=== PATIENT | female | born 1990 | race Caucasian/White ===

== ENCOUNTER 2020-11-01 10:10 | Outpatient (REF) | payer OTHER, SELFPAY | END 2020-11-01 10:11 | disposition home or self-care (01) | LOC: HO.LAB 10:10 | PROVIDERS: Visit Provider Obstetrics & Gynecology | DX: B97.7 Papillomavirus as the cause of diseases classified elsewhere (principal) | CPT/HCPCS: 57456; 81025; 88305 ==

== ENCOUNTER 2021-06-12 08:39 | Outpatient (REF) | payer OTHER, SELFPAY ==
[2021-06-13 10:18] LABS: BV Int Neg Control Negative (Negative); BV Int Pos Control Positive (Positive)
[2021-06-13 11:46] LABS: CT PCR NOT DETECTED (Not Detect.); NG PCR NOT DETECTED (Not Detect.)
== END 2021-06-12 08:40 | disposition home or self-care (01) ==
LOC: HO.LAB 08:39
PROVIDERS: Visit Provider Advanced Practice Midwife
DX: Z11.3 Encounter for screening for infections with a predominantly sexual mode of transmission (principal); R10.9 Unspecified abdominal pain; N89.8 Other specified noninflammatory disorders of vagina; N94.6 Dysmenorrhea, unspecified; Z20.2 Contact with and (suspected) exposure to infections with a predominantly sexual mode of transmission
CPT/HCPCS: 87086; 87480; 87491; 87510; 87591; 87660; 99212

== ENCOUNTER 2021-07-08 13:10 | Outpatient (REF) | payer OTHER, SELFPAY ==
[2021-07-09 09:09] LABS: CT PCR NOT DETECTED (Not Detect.); NG PCR NOT DETECTED (Not Detect.)
[2021-07-09 09:44] LABS: BV Int Neg Control Negative (Negative); BV Int Pos Control Positive (Positive)
== END 2021-07-08 13:11 | disposition home or self-care (01) ==
LOC: HO.LAB 13:10
PROVIDERS: Visit Provider Advanced Practice Midwife
DX: Z11.3 Encounter for screening for infections with a predominantly sexual mode of transmission (principal); A59.9 Trichomoniasis, unspecified; B96.89 Other specified bacterial agents as the cause of diseases classified elsewhere; N76.0 Acute vaginitis; Z20.2 Contact with and (suspected) exposure to infections with a predominantly sexual mode of transmission; N94.6 Dysmenorrhea, unspecified; N92.0 Excessive and frequent menstruation with regular cycle; Z87.42 Personal history of other diseases of the female genital tract
CPT/HCPCS: 87480; 87491; 87510; 87591; 87660; 99212

== ENCOUNTER 2021-11-10 08:42 | Outpatient (REF) | payer OTHER, SELFPAY ==
[2021-11-10 14:05] LABS: CT PCR NOT DETECTED (Not Detect.); NG PCR NOT DETECTED (Not Detect.)
[2021-11-11 09:31] LABS: BV Int Neg Control Negative (Negative); BV Int Pos Control Positive (Positive)
[2021-11-14 02:22] LABS: HPV mRNA E6/E7 rflx Not Detected (Not Detected)
== END 2021-11-10 08:43 | disposition home or self-care (01) ==
LOC: HO.LAB 08:42
PROVIDERS: Visit Provider Advanced Practice Midwife
DX: Z01.419 Encounter for gynecological examination (general) (routine) without abnormal findings (principal); N94.6 Dysmenorrhea, unspecified; Z11.3 Encounter for screening for infections with a predominantly sexual mode of transmission; Z11.8 Encounter for screening for other infectious and parasitic diseases; Z11.51 Encounter for screening for human papillomavirus (HPV); F41.8 Other specified anxiety disorders; Z87.42 Personal history of other diseases of the female genital tract; Z98.51 Tubal ligation status; Z88.1 Allergy status to other antibiotic agents; Z88.0 Allergy status to penicillin
CPT/HCPCS: 87480; 87491; 87510; 87591; 87624; 87660; 88142

== ENCOUNTER 2022-06-09 09:32 | Outpatient (REF) | payer OTHER, SELFPAY ==
[2022-06-09 13:47] LABS: CT PCR NOT DETECTED (Not Detect.); NG PCR NOT DETECTED (Not Detect.)
[2022-06-10 09:28] LABS: BV Int Neg Control Negative (Negative); BV Int Pos Control Positive (Positive)
== END 2022-06-09 09:33 | disposition home or self-care (01) ==
LOC: HO.LAB 09:32
PROVIDERS: Visit Provider Advanced Practice Midwife
DX: N94.6 Dysmenorrhea, unspecified (principal); R10.2 Pelvic and perineal pain; Z20.2 Contact with and (suspected) exposure to infections with a predominantly sexual mode of transmission; Z11.3 Encounter for screening for infections with a predominantly sexual mode of transmission
CPT/HCPCS: 87480; 87491; 87510; 87591; 87660; 99212

== ENCOUNTER 2022-07-23 11:51 | Outpatient (REF) | payer OTHER, SELFPAY ==
[2022-07-24 14:29] LABS: BV Int Neg Control Negative (Negative); BV Int Pos Control Positive (Positive)
== END 2022-07-23 11:52 | disposition home or self-care (01) ==
LOC: HO.LAB 11:51
PROVIDERS: Visit Provider Advanced Practice Midwife
DX: A59.9 Trichomoniasis, unspecified (principal)
CPT/HCPCS: 87480; 87510; 87660; 99212

== ENCOUNTER 2022-07-28 13:34 | Outpatient (REF) | payer OTHER, SELFPAY ==
--- NOTE | ~2022-07-28 | US_ITS ---
EXAMINATION: US PELVIS CLINICAL INFORMATION: Pain COMPARISON: Previous ultrasound October 2017 TECHNIQUE: Ultrasound of the pelvis is performed using both transabdominal and transvaginal transducers along with Doppler. Transvaginal imaging is performed due to inadequate visualization transabdominally. FINDINGS: The uterus is anteverted and measures 8 x 3.5 x 4.4 cm in dimension. No focal uterine lesion is seen. Endometrial thickness is normal measuring 0.5 cm. The ovaries are normal. The right ovary measures 2.7 x 1.7 x 2.1 cm. The left ovary measures 2.4 x 1.6 x 2.2 cm. There is no fluid in the pelvis. US/US pelvic and transvaginal IMPRESSION: Normal pelvic ultrasound.
== END 2022-07-28 13:35 | disposition home or self-care (01) ==
LOC: HO.US 13:34
PROVIDERS: Visit Provider Advanced Practice Midwife
DX: R10.2 Pelvic and perineal pain (principal)
CPT/HCPCS: 76830; 76856

== ENCOUNTER → 2022-08-03 10:02 | Outpatient (BNVA) | payer OTHER, SELFPAY | PROVIDERS: PCP Physician Assistant Medical; Visit Provider Advanced Practice Midwife | DX: N92.0 Excessive and frequent menstruation with regular cycle (principal); N94.6 Dysmenorrhea, unspecified; Z20.2 Contact with and (suspected) exposure to infections with a predominantly sexual mode of transmission; Z87.42 Personal history of other diseases of the female genital tract | CPT/HCPCS: 99212 ==

== ENCOUNTER → 2022-08-25 11:30 | Outpatient (BNVA) | payer OTHER, SELFPAY | PROVIDERS: PCP Physician Assistant Medical; Visit Provider Obstetrics & Gynecology | DX: N93.9 Abnormal uterine and vaginal bleeding, unspecified (principal) | CPT/HCPCS: 99212 ==

== ENCOUNTER 2022-11-11 12:56 | Outpatient (REF) | payer OTHER, SELFPAY ==
[2022-11-12 11:25] LABS: CT PCR NOT DETECTED (Not Detect.); NG PCR NOT DETECTED (Not Detect.)
[2022-11-12 12:18] LABS: BV Int Neg Control Negative (Negative); BV Int Pos Control Positive (Positive)
[2022-11-13 05:48] LABS: HPV mRNA E6/E7 rflx Not Detected (Not Detected)
== END 2022-11-11 12:57 | disposition home or self-care (01) ==
LOC: HO.LNP 12:56
PROVIDERS: Visit Provider Advanced Practice Midwife
DX: Z01.411 Encounter for gynecological examination (general) (routine) with abnormal findings (principal); Z11.51 Encounter for screening for human papillomavirus (HPV); N92.0 Excessive and frequent menstruation with regular cycle; Z20.2 Contact with and (suspected) exposure to infections with a predominantly sexual mode of transmission; Z87.42 Personal history of other diseases of the female genital tract
CPT/HCPCS: 87480; 87491; 87510; 87591; 87624; 87660; 88142

== ENCOUNTER 2022-11-11 14:16 | Outpatient (REF) | payer OTHER, SELFPAY ==
[2022-11-11 14:45] LABS: Hematocrit 37.6 % (37.0-47.0); Hemoglobin 12.8 g/dl (12.0-16.0); Mean Corpuscular Hemoglobin 31.1 pg (27.0-33.0); Mean Corpuscular Volume 91.3 fL (80.0-98.0); Platelet Count 269 X10*3/uL (160-400); Red Blood Count 4.12 X10*6/uL (4.20-5.50); Red Cell Distribution Width 12.1 % (11.0-16.0); White Blood Count 7.4 X10*3/uL (4.8-10.8)
[2022-11-11 15:38] LABS: Syphilis Screen Nonreactive (Nonreactive); TSH reflex Free T4 0.86 uIU/mL (0.32-4.0)
[2022-11-13 09:29] LABS: HBsAGNum1 0.32 S/CO (0.00-0.99); HIV AB/AG Nonreactive (Nonreactive); HIV Num 1 0.08 S/CO (0.00-0.99); Hepatitis B Surface Antigen Negative (Negative); ~HepC Num1 0.11 S/CO (0.00-0.79); ~Hepatitis C Antibody Nonreactive (Nonreactive)
== END 2022-11-11 14:17 | disposition home or self-care (01) ==
LOC: HO.LAB 14:16
PROVIDERS: Obstetrics & Gynecology; Visit Provider Advanced Practice Midwife
DX: Z11.4 Encounter for screening for human immunodeficiency virus [HIV] (principal); N94.6 Dysmenorrhea, unspecified; N93.9 Abnormal uterine and vaginal bleeding, unspecified; Z20.2 Contact with and (suspected) exposure to infections with a predominantly sexual mode of transmission
CPT/HCPCS: 36415; 84443; 85027; 86780; 86803; 87340; 87389

== ENCOUNTER → 2022-12-14 14:56 | Outpatient (BNVA) | payer OTHER, SELFPAY | PROVIDERS: Visit Provider Advanced Practice Midwife | DX: Z30.42 Encounter for surveillance of injectable contraceptive (principal) | CPT/HCPCS: 96372; 99211 ==

== ENCOUNTER 2022-12-22 12:44 | Outpatient (REF) | payer OTHER, SELFPAY | END 2022-12-22 12:45 | disposition home or self-care (01) | LOC: HO.LNP 12:44 | PROVIDERS: Visit Provider Obstetrics & Gynecology | DX: R87.610 Atypical squamous cells of undetermined significance on cytologic smear of cervix (ASC-US) (principal) | CPT/HCPCS: 57454; 88305; 88342; 88360 ==

== ENCOUNTER → 2023-01-05 10:53 | Outpatient (BNVA) | payer OTHER, SELFPAY | PROVIDERS: Visit Provider Obstetrics & Gynecology | DX: N87.0 Mild cervical dysplasia (principal); Z98.890 Other specified postprocedural states | CPT/HCPCS: 99212 ==

== ENCOUNTER 2023-01-15 10:34 | Day surgery (SDC) | payer OTHER, SELFPAY ==
[2023-01-15] VITALS (9 sets, daily range): BP systolic 104–120; BP diastolic 49–66; PULSE 60–76; RESP 16–19; TEMP 36.1–36.6; O2SAT 98–100; BMI 25.4
--- NOTE | 2023-01-15 10:53 | MHC.SHP ---
Pre-Procedural Eval Section A Date of Service: 01/15/23 Section B Chief Complaint: Mild cervical dysplasia Allergies: Allergies Allergy/AdvReac Type Severity Reaction Status Date / Time amoxicillin Allergy Severe hives Verified 01/13/23 13:38 gabapentin Allergy Severe Hives Verified 01/15/23 10:47 vancomycin Allergy Severe hives Verified 01/13/23 13:38 penicillin V Allergy Unknown hives Verified 01/13/23 13:38 Penicillins Allergy Unknown HIVES Verified 01/13/23 13:38 Plan I have reviewed the history and physical and performed a pertinent physical examination on my patient. No changes have occurred unless specified. Time Spent With Patient Time: Total time managing care of this patient today ____ minutes.
--- NOTE | 2023-01-15 10:59 | HO.ANESPROP2 ---
HPI - Anesthesia Eval Consult details Narrative: 32 yo female patient for LEEP PMFSH Active Problems Active Problems: All Active Problems (Updated 01/05/23 @ 11:25 by Evangelist Leone MD) Dysplasia of cervix, low grade (ALEX 1) (Acute) ASCUS of cervix with negative high risk HPV (Acute) Encounter for management and injection of depo-Provera (Acute) Abnormal uterine bleeding (Acute) Trichomonas contact, treated (Acute) Pelvic pain (Acute) Well woman exam with routine gynecological exam (Acute) Menorrhagia (Acute) Potential exposure to STD (Acute) Bacterial vaginosis (Acute) Trichomoniasis (Acute) Severe dysmenorrhea (Acute) Vaginal irritation (Acute) Hx of abnormal cervical Pap smear (Acute) Past Medical History Medical History Depression with anxiety Family History Family History Mother Diabetes Paternal Grandmother Alzheimer's dementia Family history of problems with anesthesia: No Surgical History Surgical History History of loop electrical excision procedure (LEEP) History of tubal ligation History of Problems with Anesthesia: No Social History Social History Household Members: Children Housing: Apartment Alcohol intake: current Alcohol intake frequency: holidays/special occasions only Patient Tobacco Use Status: Former Tobacco user Cigarettes Per Day: 3 Years Smoked: 10 Use of substances other than those prescribed or required for medical reasons: Yes Are you DNR?: No Advance Directives: No Advance Directives Information Provided: Yes Recently lost weight without trying: No Nutrition Risks: No Nutritional Risk Current occupational status: unemployed Sexual orientation: Straight/Heterosexual Gender identity: Female Meds Allergies Allergy/AdvReac Type Severity Reaction Status Date / Time amoxicillin Allergy Severe hives Verified 01/13/23 13:38 gabapentin Allergy Severe Hives Verified 01/15/23 10:47 vancomycin Allergy Severe hives Verified 01/13/23 13:38 penicillin V Allergy Unknown hives Verified 01/13/23 13:38 Penicillins Allergy Unknown HIVES Verified 01/13/23 13:38 Exam Exam Date and Time: January 15, 2023 1059 Height,Weight and Vital Signs: Height 5 ft 9 in Weight 78.018 kg Last Vital Signs Resp 16 01/15/23 10:53 O2 Del Method 01/15/23 10:53 Vital Signs Temp Pulse Resp BP Pulse Ox O2 Del Method 01/15/23 10:53 97.4 F 60 16 109/66 99 Room Air Pertinent Lab Results Pertinent Lab Results: Lab Results 01/15/23 Range/Units 10:42 Urine Test NEGATIVE (NEGATIVE) Airway Mallampati Class: II TM Dist: >3cm Neck ROM: Full Loose/Missing/Broken Teeth: Yes (Missing some teeth. Denies broken or loose teeth) Heart: RRR Lungs: CTAB Assessment and Plan Assessment Anesthesia Assessment: Anesthesia Plan Discussed and Chart Reviewed Final Anesthetic Review Family History of Problems with Anesthesia: No History of Problems with Anesthesia: No NPO: Yes ASA Class: II Final Preanesthetic Review: No Changes in Pt Med Stat, Meds/Allgs Chart Reviewed, Consent Obtained/Reviewed and Anes Risks/Benef Reviewed Patient Risk: Low Procedure Risk: Low Assessment/Block/Sedation in SS: Assess/Block/Sedation-SS Anesthetic Plan Anesthetic Plan: GA Disposition: Standard PACU
[2023-01-15 11:00] LABS: UPreg QC Valid YES; Urine Pregnancy NEGATIVE (NEGATIVE)
--- NOTE | 2023-01-15 13:06 | P.BOP_ITS ---
Brief Operative Note Date of Service: 01/15/23 Pre-op diagnosis: Persistent ALEX 1 with positive ECC Post-op diagnosis: same Procedure: LEEP CONE with post CONE ECC Surgeon: Evangelist Leone MD Anesthesia: GLMA and other (Paracervical block) Was an Environmental Communications Specialist used for this Procedure?: No Estimated blood loss (mL): 0 Pathology: other (Cervical cone, endocervical, Post cone ECC) Condition: stable Disposition: other (Home)
--- NOTE | 2023-01-15 13:07 | P.OP_ITS ---
Operative Note Operative Note Date of Service: 01/15/23 Narrative: Pre op diagnosis: Persistent ALEX 1 with positive ECC Operation: Colposcopy, Loop electrical excision procedure cone, top hat endocervical excision, post cone ECC Postop diagnosis: the same Quantitative blood loss: Minimal Surgeon: Evangelist Leone MD, FACOG Wireless Team Member: None Pathology: Cervical cone, top-hat endo cervical excision, endo cervical curettage Complications: none Anesthesia: GLMA and Para cervical block Procedure: The patient was put in a dorsal lithotomy position, scrubbed and draped in the usual sterile fashion. A speculum was inserted inside the patient's vagina. The cervix is assessed using the colposcope with acetic acid , the lesions were seen, and at least 1 cm of the squamocolumnar junction was observed. 20 x 5 mm size loop was selected based upon the diameter of the lesion. Lugol solution was used to outline the lesions and area of the transformation zone order to be removed 10 cc of xylocaine with epinephrine were injected submucosally into the surface of the cervix (ectocervix) at the 3, 6, 9, and 12 o'clock positions. The electrosurgical generator is set at 40 dorantes on blend 1. The loop is carefully passed simultaneously around and under the transformation zone, in order to ensure excising it making sure the lesion is at least 5 mm far from the specimen margins . The loop was allowed to glide through the cervix from one side to the other, allowing the cutting current to divide the tissue. Since ECC was positive additional tissue was excised from this area with a smaller-diameter loop , endo cervical cone a excision was performed An endo cervical curettage is performed following completion of excision, and hemostasis is obtained with a Ball electrode or regular tip cautery. At the end, Monsel's solution was applied to the cone bed. The patient tolerated the procedure well and, all instruments were taken out of the patient vaginal cavity, and the patient was transferred to the PACU in stable condition.
== END 2023-01-15 14:47 | disposition home or self-care (01) ==
PROVIDERS: Visit Provider Obstetrics & Gynecology
PROC: 0UBC7ZZ Excision of Cervix, Via Natural or Artificial Opening (ICD-10-PCS; CPT 57522; principal; 2023-01-15 12:30)
DX: N87.0 Mild cervical dysplasia (principal); F41.8 Other specified anxiety disorders; Z98.51 Tubal ligation status; Z88.0 Allergy status to penicillin; Z88.1 Allergy status to other antibiotic agents; Z88.8 Allergy status to other drugs, medicaments and biological substances; Z87.891 Personal history of nicotine dependence
CPT/HCPCS: 57461; 81025; 88305; 88307; J1100; J1885; J2250; J2405; J3010

== ENCOUNTER 2023-01-30 15:08 | Emergency (ER) | payer MEDICAID, SELFPAY ==
--- NOTE | ~2023-01-30 | XR_ITS ---
EXAMINATION: XR ANKLE, LEFT CLINICAL INFORMATION: Pain status post injury COMPARISON: None TECHNIQUE: AP, lateral, and mortise views of the left ankle. FINDINGS: The bones and soft tissues are normal. No fracture. Alignment is anatomic. Joint spaces are maintained. No joint effusion. XR/XR ankle LT min 3V IMPRESSION: Normal left ankle. If a soft tissue injury suspected consider MRI.
--- NOTE | 2023-01-30 15:32 | ED.GENADULT ---
HPI - General Adult General Chief complaint: Extremity Injury, Lower Stated complaint: L foot inj Time Seen by Provider: 01/30/23 17:56 Source: patient Mode of arrival: ambulatory Limitations: no limitations History of Present Illness HPI narrative: Patient is a 32 year old assigned female at with no reported medical history presenting to the emergency department today with left ankle pain. Patient states that last night she was playing with her daughter when her left ankle twisted and she felt a loud crack. Patient denies hitting her head with the incident. Patient denies any loss of consciousness from the incident. Patient denies any dizziness, lightheadedness, abdominal pain, nausea, vomiting, fever, chills, blurry vision, double vision, loss of vision, chest pain, difficulty breathing, shortness of breath, back pain, night sweats, pain with urination, increased urinary frequency, increased urinary urgency, blood in her urine or stool, syncope or a near syncopal episode, bowel incontinence, bladder incontinence, bowel retention, bladder retention, or any other complaints at this time. Onset (ago): day(s) (1) Location: left and lower extremity Radiation: non-radiation Severity: mild Severity scale (1-10): 3 Quality: aching and dull Pain Consistency: constant Relieving factors: none Exacerbating factors: none Associated symptoms: denies other symptoms Treatments prior to arrival: none Related Data Previous Rx's Medication Instructions Recorded medroxyprogesterone 150 mg/mL 150 mg IM Q12W #1 mL 11/11/22 intramuscular suspension (Depo-Provera) Allergies Allergy/AdvReac Type Severity Reaction Status Date / Time amoxicillin Allergy Severe hives Verified 01/30/23 15:33 gabapentin Allergy Severe Hives Verified 01/30/23 15:33 vancomycin Allergy Severe hives Verified 01/30/23 15:33 penicillin V Allergy Unknown hives Verified 01/30/23 15:33 Penicillins Allergy Unknown HIVES Verified 01/30/23 15:33 Review of Systems Constitutional: Constitutional: Reports no additional constitutional complaints, Denies chills, Denies fever(s) and Denies night sweats Eyes: Eyes: Reports no additional eye complaints, Denies blurry vision, Denies change in vision, Denies diplopia, Denies eye discharge, Denies loss of vision and Denies eye pain ENT: Denies dizziness Cardiovascular: Cardiovascular: Reports no additional cardiovascular complaints, Denies chest pain, Denies lightheadedness, Denies Loss of Consciousness and Denies dyspnea Respiratory: Respiratory: Reports no additional respiratory complaints and Denies dyspnea Gastrointestinal: Gastrointestinal: Reports no additional gastrointestinal complaints, Denies abdominal pain, Denies melena, Denies hematochezia, Denies change in bowel habits and Denies change in stool character Genitourinary: Genitourinary: Denies hematuria, Denies urinary frequency, Denies dysuria, Denies urinary incontinence, Denies urinary hesitancy and Denies urinary urgency Musculoskeletal: Musculoskeletal: Reports no additional musculoskeletal complaints, Denies numbness and Denies tingling Comments: left ankle pain Neurologic: Denies dizziness, Denies loss of vision, Denies numbness and Denies tingling Psychiatric: Psychiatric: Reports no additional psychiatric complaints Endocrine: Endocrine: Reports no additional endocrine complaints Hematologic/Lymphatic: Hematologic/Lymphatic: Reports no additional hematologic/lymphatic complaints Allergic/Immunologic: Allergic/Immunologic: Reports no additional allergic/immunologic complaints [facility] Past Medical History Attestation statement: The following information was validated with the patient. Source: old records reviewed and nursing notes reviewed Medical History Depression with anxiety Surgical History History of loop electrical excision procedure (LEEP) History of tubal ligation Family History Family History Mother Diabetes Paternal Grandmother Alzheimer's dementia Social History Social History Household Members: Children Housing: Apartment Alcohol intake: current Alcohol intake frequency: holidays/special occasions only Patient Tobacco Use Status: Former Tobacco user Cigarettes Per Day: 3 Years Smoked: 10 Advance Directives: No Advance Directives Information Provided: No Current occupational status: unemployed Sexual orientation: Straight/Heterosexual Gender identity: Female Physical Exam ED Vital Signs: Vital Signs - 24 hr 01/30/23 15:33 01/30/23 17:57 Temperature 97.5 F 98.8 F Pulse Rate 72 80 Respiratory Rate 18 16 Blood Pressure 116/69 127/62 Pulse Oximetry 100 99 Oxygen Delivery Method Room Air Room Air BMI result Body Mass Index 25.5 Const General: cooperative, no acute distress, alert and awake Nutritional Appearance: well nourished Orientation/consciousness: patient oriented x3 Limitations: no limitations HENMT Head: Yes normal to inspection and Yes atraumatic Ears: hearing grossly normal bilaterally and external ears normal General nose exam: Normal external nose present, no nasal discharge noted and no epistaxis Face and sinus: Yes normal facial exam, No abrasion and No laceration Mouth: Normal oral and palatal mucosa present, no drooling and no muffled voice Eyes General: appearance normal, both eyes and all related structures Periorbital: periorbital findings normal Eyelids: Yes eyelids normal Conjunctivae: conjunctivae normal Pupils: Equal, round and reactive pupils present EOM: EOMs intact bilaterally Neck Neck: Yes normal visual inspection, Yes full ROM and Yes no lymphadenopathy Chest Chest palpation & inspection: normal inspection of the chest Resp Effort & Inspection: normal respiratory effort and able to speak in complete sentences Auscultation: clear to auscultation bilaterally Cardio Rate: regular rate Rhythm: regular rhythm GI Inspection: Yes normal to inspection Neuro General: patient oriented x3 and moves all extremities Cranial nerves: Yes Equal, round and reactive pupils present Cognition (Neuro): normal cognition Motor exam (neuro): 5/5 motor strength present throughout Sensory Exam: Normal double simultaneous stimulation for sensation Coordination: czvqvq-[id number]-lvic test normal Extrem Other: minimal swelling to the left ankle General: Yes full ROM and Yes capillary refill normal Psych Appearance: grossly normal Mental Status: mental status grossly normal Affect: normal affect Attitude: cooperative Thought process: Normal thought process present Thought content: Normal thought content present Insight: Good insight present (Psych) Course Course Course Narrative: RME performed by Esther Ardon PA-C. Patient is a 32 year old female presenting to the emergency department with left ankle pain. Patient states that she was playing with her daughter when she twisted her left ankle and heard a loud pop. XR ordered. Patient placed back in the waiting room pending imaging and room availability. Procedures Orthopedic Splinting/Casting Injury #1: Side: left Lower Extremity Injury Location: ankle Lower Extremity Immobilizer: boot orthosis Other Orthopedic Equipment: crutches Medical Decision Making Medical Decision Making MDM Narrative: Patient is a 32 year old assigned female at with no reported medical history presenting to the emergency department today with left ankle pain. Patient's physical exam showed minimal swelling to the left ankle but was otherwise unremarkable. Patient's left ankle x-ray showed no acute process. I explained my physical exam findings as well as all test results to the patient. I answered all questions asked by the patient. Patient's left ankle was placed in a walking boot and the patient was given crutches with crutch instructions. Patient's PMS was intact prior to and after boot placement. I stressed the importance of the patient taking her medication as prescribed. I stressed the importance of the patient following up with her primary care provider and an orthopedic provider. I stressed the importance of the patient returning to the emergency department immediately if her symptoms were to worsen or if she were to develop any dizziness, shortness of breath, difficulty breathing, chest pain, blurry vision, loss of vision, nausea, vomiting, abdominal pain, fever, chills, back pain, or any other complaints. Patient verbalized agreement and understanding with this treatment plan and discharge. Differential Diagnosis Differential Diagnoses: The differential diagnosis associated with the presentation includes left ankle injury, left ankle sprain, left ankle strain, left ankle fracture Independent Interpretation I performed an independent interpretation of an: Plain X-Ray Interpretation: My interpretation is in agreement with the radiologist's impression of this imaging study. EXAMINATION: XR ANKLE, LEFT CLINICAL INFORMATION: Pain status post injury? COMPARISON: None? TECHNIQUE: AP, lateral, and mortise views of the left ankle. FINDINGS: The bones and soft tissues are normal. No fracture. Alignment is anatomic. Joint spaces are maintained. No joint effusion.? XR/XR ankle LT min 3V IMPRESSION: Normal left ankle. If a soft tissue injury suspected consider MRI. Dictated By: Darrin Pope MD Signed By: Electronically signed by Darrin Pope MD 01/30/23 2499 Discharge Plan Discharge Clinical Impression: Ankle injury Patient Disposition: Home, Self-Care Instructions: Crutch Instructions (ED) Additional Instructions: Follow up with your primary care provider and an orthopedic provider. Return to the emergency department immediately if your symptoms worsen or if you develop any dizziness, shortness of breath, difficulty breathing, chest pain, blurry vision, loss of vision, nausea, vomiting, abdominal pain, fever, chills, back pain, or any other complaints. Prescriptions: No Action medroxyprogesterone [Depo-Provera] 150 mg/mL suspension 150 mg IM Q12W Qty: 1 5RF Referrals: [facility] [place] Family Medicine [Provider Group] (Call to establish and follow up with a primary care provider. If you already have a primary care provider, please follow up with them.) [facility] [place] Primary Care, [facility] [Provider Group] (Call to establish and follow up with a primary care provider. If you already have a primary care provider, please follow up with them.) [facility] [place] [facility] [Provider Group] (Call to establish and follow up with a primary care provider. If you already have a primary care provider, please follow up with them.) [facility] [place] [facility] [Provider Group] (Call to establish and follow up with an orthopedic provider. ) Interventions: ED Discharge Assessment Last Done: 01/30/23 18:21 Discharge Date/Time: 01/30/23 18:22 Print Language: Lao
[2023-01-30 15:33] VITALS: BP 116/69; PULSE 72; RESP 18; TEMP 36.4; O2SAT 100; BMI 25.5
[2023-01-30 17:57] VITALS: BP 127/62; PULSE 80; RESP 16; TEMP 37.1; O2SAT 99
== END 2023-01-30 18:22 | disposition home or self-care (01) ==
PROVIDERS: Emergency Provider Student in an Organized Health Care Education/Training Program
DX: S99.912A Unspecified injury of left ankle, initial encounter (principal); X50.1XXA Overexertion from prolonged static or awkward postures, initial encounter; Y93.89 Activity, other specified; Y92.019 Unspecified place in single-family (private) house as the place of occurrence of the external cause; Y99.9 Unspecified external cause status
CPT/HCPCS: 73610; 99283

== ENCOUNTER → 2023-02-04 14:00 | Outpatient (BNVA) | payer MEDICAID, SELFPAY | PROVIDERS: Visit Provider Obstetrics & Gynecology | DX: N87.0 Mild cervical dysplasia (principal); Z98.890 Other specified postprocedural states | CPT/HCPCS: 99212 ==

== ENCOUNTER → 2023-02-12 14:30 | Outpatient (BNVA) | payer MEDICAID, SELFPAY | PROVIDERS: Visit Provider Physician Assistant | DX: S93.402A Sprain of unspecified ligament of left ankle, initial encounter (principal) | CPT/HCPCS: 99202 ==

== ENCOUNTER → 2023-03-01 14:42 | Outpatient (BNVA) | payer MEDICAID, SELFPAY | PROVIDERS: Visit Provider Advanced Practice Midwife | DX: Z30.42 Encounter for surveillance of injectable contraceptive (principal) | CPT/HCPCS: 96372; 99211 ==

== ENCOUNTER 2023-05-03 12:03 | Outpatient (REF) | payer MEDICAID, SELFPAY ==
[2023-05-04 11:20] LABS: CT PCR NOT DETECTED (Not Detect.); NG PCR NOT DETECTED (Not Detect.)
== END 2023-05-03 12:04 | disposition home or self-care (01) ==
LOC: HO.LNP 12:03
PROVIDERS: Visit Provider Obstetrics & Gynecology
DX: N93.9 Abnormal uterine and vaginal bleeding, unspecified (principal); Z20.2 Contact with and (suspected) exposure to infections with a predominantly sexual mode of transmission
CPT/HCPCS: 0353U; 99212

== ENCOUNTER → 2023-05-24 14:54 | Outpatient (BNVA) | payer MEDICAID, SELFPAY | PROVIDERS: Visit Provider Advanced Practice Midwife | DX: Z30.42 Encounter for surveillance of injectable contraceptive (principal); N93.9 Abnormal uterine and vaginal bleeding, unspecified | CPT/HCPCS: 96372; 99211 ==

== ENCOUNTER 2023-08-23 10:06 | Outpatient (AMB) | payer MEDICAID, SELFPAY ==
[2023-08-23 10:24] VITALS: BMI 30.9
--- NOTE | 2023-08-23 10:24 | AM.OFFVISNUR ---
Intake Vital Signs 08/23/23 10:24 Height 5 ft 9 in Weight 94.914 kg BMI 30.9 Intake Visit Reasons: Depo Allergies amoxicillin Allergy (Severe, Verified 05/03/23 12:30) hives gabapentin Allergy (Severe, Verified 05/03/23 12:30) Hives vancomycin Allergy (Severe, Verified 05/03/23 12:30) hives penicillin V Allergy (Unknown, Verified 05/03/23 12:30) hives Penicillins Allergy (Unknown, Verified 05/03/23 12:30) HIVES Office Procedures Depo Questionnaire If YES to any of the following questions, please consult a provider. Date of last injection: 05/24/23 Date of last menstrual period: 08/09/23 Date of last gynecology exam: 11/11/22 Menstrual pattern since last injection has been: Light Irregular bleeding?: No Breast lumps or other breast changes?: No Changes in weight or appetite?: Yes (gain) Depression or changes in mood?: No Abnormal hair growth or loss?: No Skin problems (rash, acne, discoloration)?: No Pain at the injection site?: No Headaches?: No Nervousness?: No Abdominal pain or cramping?: No Dizziness or nausea?: No Fatigue or weakness?: No Decrease in sexual drive?: No Chest pain or shortness of breath?: No Swelling in arms or legs?: No Form completed by?: Basil Dawn LPN Office Meds Depo-Provera 150 mg/mL intramuscular syringe Performing Provider: Tati Jeff CNM Performing Location: [facility] [place] [facility] Administered by: Diamante Dawn LPN on 08/23/23 10:24 Dose Route Admin Location Dispensed Lot Number Expiration Date [facility] [employer] 150 mg IM rt. gluteus 1 mL [id number] 09/21/25 19299-731-77 [facility] Coding Level of Care Code Established Pt Est Pt Level 1 (72269) Patient Type Established History Problem Focused Exam Problem Focused Medical Decision Making Straight Forward Time Spent (min) 15 Assessment & Plan Assessment & Plan Orders: Orders AMB Medroxyprogesterone Injection Patient Supplied Today N93.9 - Abnormal uterine and vaginal bleeding, unspecified, Z30.42 - Encounter for surveillance of injectable contraceptive
== END 2023-08-23 10:20 | disposition home or self-care (01) ==
PROVIDERS: Visit Provider Advanced Practice Midwife
DX: Z30.42 Encounter for surveillance of injectable contraceptive (principal); N93.9 Abnormal uterine and vaginal bleeding, unspecified

== ENCOUNTER → 2023-08-23 10:06 | Outpatient (BNVA) | payer MEDICAID, SELFPAY | PROVIDERS: Visit Provider Advanced Practice Midwife | DX: Z30.42 Encounter for surveillance of injectable contraceptive (principal); N93.9 Abnormal uterine and vaginal bleeding, unspecified | CPT/HCPCS: 96372; 99211; J1050 ==

== ENCOUNTER 2023-10-06 15:31 | Outpatient (REF) | payer MEDICAID, SELFPAY ==
[2023-10-07 14:10] LABS: CT PCR NOT DETECTED (Not Detect.); NG PCR NOT DETECTED (Not Detect.)
[2023-10-12 06:29] LABS: HPV mRNA E6/E7 rflx Not Detected (Not Detected)
== END 2023-10-06 15:32 | disposition home or self-care (01) ==
LOC: HO.LNP 15:31
PROVIDERS: Visit Provider Obstetrics & Gynecology
DX: N93.9 Abnormal uterine and vaginal bleeding, unspecified (principal); N87.0 Mild cervical dysplasia; Z32.02 Encounter for pregnancy test, result negative; Z79.899 Other long term (current) drug therapy
CPT/HCPCS: 0353U; 81025; 84443; 84702; 85027; 87624; 88142; 99212

== ENCOUNTER 2023-10-06 15:31 | Outpatient (AMB) | payer MEDICAID, SELFPAY ==
--- NOTE | 2023-10-06 15:35 | MHC.OFFVIS ---
Intake Vital Signs 10/06/23 15:40 Height 5 ft 9 in Weight 209 lb BMI 30.9 BP 92/68 Intake Visit Reasons: vaginal bleeding Tool Setter Required: No Information Interpreted: non-clinical & clinical Enrollment Management Vice President: Enrollment Management Vice President Present (Alba) Allergies amoxicillin Allergy (Severe, Verified 10/06/23 15:42) hives gabapentin Allergy (Severe, Verified 10/06/23 15:42) Hives vancomycin Allergy (Severe, Verified 10/06/23 15:42) hives penicillin V Allergy (Unknown, Verified 10/06/23 15:42) hives Penicillins Allergy (Unknown, Verified 10/06/23 15:42) HIVES Is last menstrual period known: Yes Last menstrual period: 09/23/23 Post menopausal: No HPI HPI Comments History of Present Illness Details Presenting complaining of continuous vaginal bleeding since she was started on Depo-Provera, patient recently took her 4 th shot. Last co testing was in 2021 which showed ASCUS/HPV negative, colpo/biopsy showed ALEX 1 PFSH Medical History Depression with anxiety Surgical History History of loop electrical excision procedure (LEEP) History of tubal ligation Family History Mother Diabetes Paternal Grandmother Alzheimer's dementia Social History Household Members: Children Housing: Apartment Alcohol intake: current Alcohol intake frequency: holidays/special occasions only Patient Tobacco Use Status: Former Tobacco user Cigarettes Per Day: 3 Years Smoked: 10 Current occupational status: unemployed Sexual orientation: Straight/Heterosexual Gender identity: Female Female Reproductive History Menstrual Age of Menarche: 8 Duration of menses: 3-5 days Date of last menstrual period: 09/23/23 control method: progesterone injection Date of last pap smear: 11/11/22 (ASCUS) History of abnormal pap smear: Yes Review of Systems Const All systems reviewed & are unremarkable except as noted in HPI and below Physical Exam Vital Signs: Last Vital Signs BP 92/68 10/06/23 15:40 BMI result Body Mass Index 30.9 General: Yes no CVA tenderness External Female Exam: normal external appearance and normal appearance of the urethra Speculum Exam - Vagina: normal appearance of the vagina, normal palpation, no lesions and no masses Speculum Exam - Cervix: normal appearance of the cervix, normal palpation, no lesions, no masses and nontender Bimanual exam- vagina & uterus: normal bimanual exam, normal palpation, uterine size normal, normal palpation, uterine shape normal, No Cervical tenderness present and non-tender Bimanual Exam- Adnexa, other: normal adnexae Back/Spine/Pelvis Back: no CVA tenderness Results AMB Test Urine AMB Test Urine Negative Last Edit by Alba Corbett CMA on 10/06/23 15:42 AMB Test Urine AMB Test Urine Negative Last Edit by HEATHER Davis on 10/06/23 15:45 Results Reviewed Results Reviewed: Laboratory Last Values Tst Clinic Negative 10/06/23 15:41 Assessment & Plan Assessment & Plan (1) Abnormal uterine bleeding: Comment: On Depo-Provera Code(s): N93.9 - Abnormal uterine and vaginal bleeding, unspecified Plan: Urine test done in the office was negative. Co testing done, GC and chlamydia taken, CBC, TSH, HCG, and pelvic ultrasound ordered. Discussed with the patient the different causes of abnormal bleeding including thyroid disorders, uterine and ovarian pathology, endometrial hyperplasia, carcinoma and other potential causes. Discussed with the patient the work up including CBC (to r/o anemia), TSH, pelvic Ultrasound, endometrial biopsy to r/o endometrial pathology. All questions answered and the patient verbalized understanding. Instructed the patient to schedule an appointment for an endometrial biopsy in 2 weeks. Orders: Orders US pelvic and transvaginal Today N93.9 - Abnormal uterine and vaginal bleeding, unspecified AMB HCG Urine Test Today Z32.02 - Encounter for test, result negative AMB HCG Urine Test Today Z32.02 - Encounter for test, result negative Pap Smear Today N87.0 - Mild cervical dysplasia, N93.9 - Abnormal uterine and vaginal bleeding, unspecified, R87.610 - Atypical squamous cells of undetermined significance on cytologic smear of cervix (ASC-US) CT NG by PCR Today N87.0 - Mild cervical dysplasia, N93.9 - Abnormal uterine and vaginal bleeding, unspecified, R87.610 - Atypical squamous cells of undetermined significance on cytologic smear of cervix (ASC-US) Complete Blood Count no Diff Today N93.9 - Abnormal uterine and vaginal bleeding, unspecified TSH reflex Free T4 Today N93.9 - Abnormal uterine and vaginal bleeding, unspecified HCG Quantitative Today N93.9 - Abnormal uterine and vaginal bleeding, unspecified Coding Level of Care Code Est Pt Level 3 (49073) Diagnoses Abnormal uterine bleeding N93.9
[2023-10-06 15:40] VITALS: BP 92/68; BMI 30.9
== END 2023-10-06 15:56 | disposition home or self-care (01) ==
LOC: HO.HWS 15:31
PROVIDERS: Visit Provider Obstetrics & Gynecology
DX: N93.9 Abnormal uterine and vaginal bleeding, unspecified (principal); Z32.02 Encounter for pregnancy test, result negative
CPT/HCPCS: 99213

== ENCOUNTER 2023-10-06 15:58 | Outpatient (REF) | payer MEDICAID, SELFPAY ==
[2023-10-06 16:45] LABS: Hematocrit 37.3 % (37.0-47.0); Mean Corpuscular HGB Conc 32.2 g/dl (31.0-35.0); Mean Corpuscular Hemoglobin 29.6 pg (27.0-33.0); Mean Corpuscular Volume 92.1 fL (80.0-98.0); Mean Platelet Volume 10.3 fL (9.4-12.3); Platelet Count 292 X10*3/uL (160-400); Red Blood Count 4.05 X10*6/uL (4.20-5.50); Red Cell Distribution Width 12.3 % (11.0-16.0)
[2023-10-06 17:34] LABS: HCG Quantitative < 2 mIU/mL; TSH reflex Free T4 1.91 uIU/mL (0.32-4.0)
== END 2023-10-06 15:59 | disposition home or self-care (01) ==
LOC: HO.LAB 15:58
PROVIDERS: Visit Provider Obstetrics & Gynecology
DX: N93.9 Abnormal uterine and vaginal bleeding, unspecified (principal)
CPT/HCPCS: 84443; 84702; 85027

== ENCOUNTER 2023-11-03 15:43 | Outpatient (REF) | payer MEDICAID, SELFPAY ==
--- NOTE | ~2023-11-03 | US_ITS ---
EXAMINATION: US PELVIS COMPLETE CLINICAL INFORMATION: Abnormal uterine bleeding COMPARISON: Pelvic ultrasound 05/11/2022 TECHNIQUE: Transabdominal and transvaginal imaging was performed. FINDINGS: The uterus is of normal size and echogenicity measuring 8.7 x 3.7 x 4.5 cm. A regular homogeneous endometrium is identified measuring 0.6 cm. Both ovaries are of normal size and echogenicity. The right measures 3.6 x 1.8 x 2.7 cm for a volume of 9.2 mL. The left measures 2.4 x 1.1 x 2.3 cm for a volume of 4.0 mL. There is no pelvic free fluid. US/US pelvic and transvaginal IMPRESSION: Unremarkable pelvic ultrasound.
== END 2023-11-03 15:44 | disposition home or self-care (01) ==
LOC: HO.US 15:43
PROVIDERS: Visit Provider Obstetrics & Gynecology
DX: N93.9 Abnormal uterine and vaginal bleeding, unspecified (principal)
CPT/HCPCS: 76830; 76856

== ENCOUNTER 2024-07-13 12:02 | Emergency (ER) | payer MEDICAID, SELFPAY ==
[2024-07-13 12:16] VITALS: BP 130/84; PULSE 55; RESP 16; TEMP 36.2; O2SAT 100; BMI 36.4
--- NOTE | 2024-07-13 12:22 | ED.GENADULT ---
HPI - General Adult General Chief complaint: General Medical Stated complaint: back pain-swollen feet Time Seen by Provider: 07/13/24 14:59 History of Present Illness ED Provider: Dr. Denise HPI narrative: 34 y/o F patient; PMH unremarkable; presents from home reporting bilateral lower extremity swelling for the past several months. She also reports bilateral flank pain, LLQ abdominal pain, and a generalized non-focal headache. She notes increased frequency in urination. The patient states in the last year she has gained approx 60 - 80. She states her usual weight is 140 - 180lb and currently is 240lb. She attributes the weight gain to life stressors. She denies: fever or chills, SOB, cough/congestion, chest pain, nausea/vomiting, diarrhea. She denies: vaginal discharge or increased odor. Related Data Previous Rx's ?Medication ?Instructions ?Recorded medroxyprogesterone 150 mg/mL 150 mg IM Q12W #1 mL 11/16/23 intramuscular suspension (Depo-Provera) metronidazole 500 mg tablet 500 mg PO BID 7 days #14 tabs 07/05/24 Allergies Allergy/AdvReac Type Severity Reaction Status Date / Time amoxicillin Allergy Severe hives Verified 07/13/24 12:18 gabapentin Allergy Severe Hives Verified 07/13/24 12:18 vancomycin Allergy Severe hives Verified 07/13/24 12:18 penicillin V Allergy Unknown hives Verified 07/13/24 12:18 Penicillins Allergy Unknown HIVES Verified 07/13/24 12:18 Review of Systems Review of Systems: Yes all other systems are reviewed and are negative Neurologic: Denies Abnormal speech present and Denies Sensory deficit (Neuro) [facility] Past Medical History Attestation statement: The following information was validated with the patient. Source: old records reviewed Medical History Depression with anxiety Surgical History History of loop electrical excision procedure (LEEP) History of tubal ligation Family History Family History Mother Diabetes Paternal Grandmother Alzheimer's dementia Social History Social History Household Members: Children Housing: Apartment Alcohol intake: current Alcohol intake frequency: holidays/special occasions only Patient Tobacco Use Status: Former Tobacco user Cigarettes Per Day: 3 Years Smoked: 10 Current occupational status: unemployed Sexual orientation: Straight/Heterosexual Gender identity: Female Physical Exam ED Vital Signs: Vital Signs - 24 hr 07/13/24 12:16 07/13/24 15:16 Temperature 97.2 F 98.7 F Pulse Rate 55 55 Respiratory Rate 16 16 Blood Pressure 130/84 126/68 Pulse Oximetry 100 100 Oxygen Delivery Method Room Air Room Air BMI result Body Mass Index 36.4 Patient is afebrile and hemodynamically stable Const General: cooperative and no acute distress Orientation/consciousness: patient oriented x3 HENMT Head: Yes normal to inspection and Yes atraumatic Eyes General: appearance normal, both eyes and all related structures Pupils: Equal, round and reactive pupils present EOM: EOMs intact bilaterally Neck Neck: Yes normal visual inspection, Yes full ROM, Yes supple and No tender Chest Chest palpation & inspection: normal inspection of the chest and normal palpation of entire chest wall Resp Effort & Inspection: normal respiratory effort, able to speak in complete sentences, no audible wheezes, no cough and no respiratory distress Auscultation: clear to auscultation bilaterally Cardio Rate: regular rate Rhythm: regular rhythm Peripheral pulses: Peripheral pulses 2+ throughout GI Inspection: Yes normal to inspection, No Abdominal wall edema and No distended Palpation (GI): Soft to palpation, not firm, nontender, no guarding and not rigid Auscultation: normal bowel sounds Back/Spine/Pelvis Back: No back tenderness Neuro General: patient oriented x3 and gait normal Cranial nerves: Yes CN's II-XII intact bilaterally and Yes Equal, round and reactive pupils present Cognition (Neuro): normal cognition Speech: No Abnormal speech present Motor exam (neuro): 5/5 motor strength present throughout Sensory Exam: No Sensory deficit (Neuro) Extrem Other: 2+ bilateral lower extremity mildly pitting edema Course Course Course Narrative: This is a Rapid Medical Examination (RME) performed by Bessy Dickerson PA-C in triage. Full HPI, ROS, assessment and treatment plan per primary provider in the Main ED. 34 yo female here with multiple complaints. Reports bilateral feet swelling times months with pain radiating from feet up into her knees bilaterally. No trauma/injury. She also reports bilateral flank pain with associated left lower quadrant pain, urinary frequency. endorses ALVAREZ. denies sob and chest pain. Plan: labs, ekg, UA, viral serology Reevaluation(s) Reevaluation #1: Patient is afebrile and hemodynamically stable. Reviewed triage orders. Labs: No leukocytosis. Appropriate electrolytes. Appropriate albumin. TSH WNL. BNP 100. UA unremarkable. COVID/Flu/RSV negative. Discussed with patient reassuring laboratory studies. Discussed vague symptoms may be 2/2 to rapid weight gain and impact on muscles/joints/ligaments. Patient offered lower extremity US to r/o DVT but declined and would prefer to follow up with her PCP. She has not had any chest pain, difficulty breathing, or syncope. She came in today because she was initially having difficulty getting an appointment with her PCP, however does report she has an appointment with her PCP early next week. Patient is well appearing. Plan: Discharge to home with PCP follow up Return precautions given Medical Decision Making Lab Data 07/13/24 12:44 07/13/24 12:44 Labs: Lab Results 07/13/24 07/13/24 07/13/24 Range/Units 12:44 12:50 12:52 WBC 7.3 (4.8-10.8) X10*3/uL RBC 4.17 L (4.20-5.50) X10*6/uL Hgb 12.2 (12.0-16.0) g/dl Hct 36.5 L (37.0-47.0) % MCV 87.5 (80.0-98.0) fL MCH 29.3 (27.0-33.0) pg MCHC 33.4 (31.0-35.0) g/dl RDW 13.6 (11.0-16.0) % Plt Count 284 (160-400) X10*3/uL MPV 9.3 L (9.4-12.3) fL Immature Gran % (Auto) 0.6 H (0.0-0.4) % Neut % (Auto) 65.4 (45-73) % Lymph % (Auto) 24.0 (20-40) % [place] % (Auto) 6.3 (2-11) % Eos % (Auto) 3.3 (0-4) % Baso % (Auto) 0.4 (0-2) % Lymph # (Auto) 1.7 (1.2-4.9) X10*3/uL [place] # (Auto) 0.5 (0.1-1.2) X10*3/uL Eos # (Auto) 0.2 (0.0-0.4) X10*3/uL Baso # (Auto) 0.0 (0.0-0.2) X10*3/uL Abs Immat Gran (auto) 0.04 H (0.00-0.03) X10*3/uL Absolute Neuts (auto) 4.8 (2.0-8.3) x10*3/uL Absolute Nucleated RBC 0.000 (0.0-0.012) X10*3/uL Nucleated RBC % (auto) 0.0 (0.0-0.2) /100WBC PT 11.2 (11.1-13.3) SEC INR 0.9 (0.9-1.1) Sodium 139 (135-145) mmol/L Potassium 3.8 (3.3-5.1) mmol/L Chloride 107 (96-108) mmol/L Carbon Dioxide 25 (22-29) mmol/L Anion Gap 11 L (12-20) BUN 10 (9-16) mg/dL Creatinine 0.88 (0.5-1.4) mg/dL Estim Creat Clear Calc 117.7 Estimated GFR > 60 Random Glucose 93 (60-115) mg/dL Calcium 9.1 (8.4-10.2) mg/dL Magnesium 2.2 (1.6-2.6) mg/dL Total Bilirubin 0.2 (0.0-1.0) mg/dL AST 39 H (5-31) U/L ALT 30 (0-31) U/L Alkaline Phosphatase 69 (39-117) U/L B-Natriuretic Peptide 100 (<100) pg/mL Total Protein 6.8 (6.5-8.0) g/dL Albumin 3.9 (3.5-5.0) g/dL Lipase 18 (8-78) U/L TSH 1.46 (0.32-4.0) uIU/mL Urine Color Yellow Urine Appearance Clear Urine pH 6.5 (5.0-9.0) Ur Specific [place] <= 1.005 (1.005-1.025) Urine Protein Negative (Neg-Trace) mg/dL Urine Glucose (UA) Negative (Negative) mg/dL Urine Ketones Negative (Negative) mg/dL Urine Blood Small (1+) H (Negative) Urine Nitrite Negative (Negative) Ur Leukocyte Esterase Small (1+) H (Negative) Urine RBC 0-2 (0-2) /HPF Urine WBC 0-5 (0-5) /HPF Ur Squamous Epith Cells 6-10 (0-2) /HPF Urine Bacteria Trace (None Seen) Hyaline Casts 0-2 (0-2) /LPF Urine Test NEGATIVE (NEGATIVE) Influenza Type A (PCR) NEGATIVE (Negative) Influenza Type B (PCR) NEGATIVE (Negative) RSV RNA Qual (PCR) NEGATIVE (Negative) SARS-CoV-2 RNA (RT-PCR) NEGATIVE (Negative) Discharge Plan Discharge Clinical Impression: Bilateral edema of lower extremity Patient Disposition: Home, Self-Care Instructions: Leg Edema (ED) Additional Instructions: As we discussed, you were seen today for multiple symptoms including lower extremity swelling, back pain, increased urination. Your labs were all very reassuring. Your urine did not show evidence of infection. Recommend you follow up with your PCP as you have already scheduled. Return to the emergency department for: Difficulty breathing Chest pain Passing out Worsening chest or back pain Prescriptions: No Action medroxyprogesterone [Depo-Provera] 150 mg/mL suspension 150 mg IM Q12W Qty: 1 5RF metronidazole 500 mg tablet 500 mg PO BID 7 Days Qty: 14 0RF Print Language: Lithuanian
--- NOTE | 2024-07-13 12:25 | ECG_ITS ---
Test Reason : presyncope Blood Pressure : / mmHG Vent. Rate : 052 BPM Atrial Rate : 052 BPM P-R Int : 132 ms QRS Dur : 088 ms QT Int : 474 ms P-R-T Axes : 041 009 005 degrees QTc Int : 440 ms Sinus bradycardia Otherwise normal ECG No previous ECGs available Referred By: Sharon Dickerson Electronically Signed By:PIPPA MINAYA
[2024-07-13 12:48] LABS: MANUAL DIFF FLAG NO
[2024-07-13 12:49] LABS: Basophils Percent Auto 0.4 % (0-2); Eosinophils Absolute Auto 0.2 X10*3/uL (0.0-0.4); Eosinophils Percent Auto 3.3 % (0-4); Hematocrit 36.5 % (37.0-47.0); Hemoglobin 12.2 g/dl (12.0-16.0); Imm Gran Abs Auto 0.04 X10*3/uL (0.00-0.03); Imm Gran Pct Auto 0.6 % (0.0-0.4); Lymphocytes Absolute Auto 1.7 X10*3/uL (1.2-4.9); Mean Corpuscular HGB Conc 33.4 g/dl (31.0-35.0); Mean Corpuscular Hemoglobin 29.3 pg (27.0-33.0); Mean Corpuscular Volume 87.5 fL (80.0-98.0); Mean Platelet Volume 9.3 fL (9.4-12.3); Monocytes Absolute Auto 0.5 X10*3/uL (0.1-1.2); Monocytes Percent Auto 6.3 % (2-11); Neutrophils Absolute Auto 4.8 x10*3/uL (2.0-8.3); Neutrophils Percent Auto 65.4 % (45-73); Platelet Count 284 X10*3/uL (160-400); Red Blood Count 4.17 X10*6/uL (4.20-5.50); Red Cell Distribution Width 13.6 % (11.0-16.0); White Blood Count 7.3 X10*3/uL (4.8-10.8)
[2024-07-13 12:55] LABS: INTERNATIONAL NORM RATIO 0.9 (0.9-1.1); Prothrombin Time 11.2 SEC (11.1-13.3)
[2024-07-13 13:02] LABS: Appearance Urine Clear; Color Urine Yellow; Glucose Urine UA Negative (Negative); Leukocyte Esterase Urine Small (1+) (Negative); Nitrite Urine Negative (Negative); PH 6.5 (5.0-9.0); Specific Gravity - Urine <= 1.005 (1.005-1.025); UMIC TRIGGER UACC YES; Urine Blood Small (1+) (Negative); Urine Ketones Negative (Negative); Urine Protein Negative (Neg-Trace)
[2024-07-13 13:06] LABS: Alanine Aminotransferase 30 U/L (0-31); Albumin Level 3.9 g/dL (3.5-5.0); Alkaline Phosphatase 69 U/L (39-117); Anion Gap 11 (12-20); Aspartate Amino Transferase 39 U/L (5-31); Bilirubin Total 0.2 mg/dL (0.0-1.0); Blood Urea Nitrogen 10 mg/dL (9-16); Calcium 9.1 mg/dL (8.4-10.2); Carbon Dioxide 25 mmol/L (22-29); Chloride 107 mmol/L (96-108); Creatinine Clr Calc Pharmacy 117.7; Estimated Glomerular Filt Rate > 60; Glucose Random 93 mg/dL (60-115); Lipase 18 U/L (8-78); Magnesium 2.2 mg/dL (1.6-2.6); Potassium 3.8 mmol/L (3.3-5.1); Sodium 139 mmol/L (135-145); Total Protein 6.8 g/dL (6.5-8.0)
[2024-07-13 13:11] LABS: B Type Natriuretic Peptide 100 pg/mL (<100)
[2024-07-13 13:15] LABS: Bacteria Urine Trace (None Seen); Hyaline Casts Urine 0-2 /LPF (0-2); RBC Urine 0-2 /HPF (0-2); UACC Culture Trigger YES; WBC Urine 0-5 /HPF (0-5)
[2024-07-13 13:24] LABS: TSH reflex Free T4 1.46 uIU/mL (0.32-4.0)
[2024-07-13 13:28] LABS: Influenza A PCR NEGATIVE (Negative); Influenza B PCR NEGATIVE (Negative); Resp Syncy Virus RNA Qual PCR NEGATIVE (Negative); SARS COV2 PCR INHOUSE NEGATIVE (Negative)
[2024-07-13 15:16] VITALS: BP 126/68; PULSE 55; RESP 16; TEMP 37.1; O2SAT 100
[2024-07-13 15:34] LABS: UPreg QC Valid YES; Urine Pregnancy NEGATIVE (NEGATIVE)
--- NOTE | 2024-07-13 16:43 | PC.NURSE ---
this nurse had not seen this patient as they were brought in while on break, pt was seen by provider and had changed into clothes and left prior to getting discharge paperwork.
[2024-07-13 16:48] VITALS: BP 126/68; PULSE 55; RESP 16; TEMP 37.1; O2SAT 100
[2024-07-13 17:37] LABS: Estimated Average Glucose 103 mg/dL; Hemoglobin A1c % 5.2 % (<6.0)
== END 2024-07-13 16:48 | disposition home or self-care (01) ==
PROVIDERS: Physician Assistant Medical; Emergency Provider Emergency Medicine
DX: R60.0 Localized edema (principal); Z03.818 Encounter for observation for suspected exposure to other biological agents ruled out; R51.9 Headache, unspecified
CPT/HCPCS: 0241U; 36415; 80053; 81001; 81003; 81025; 83036; 83690; 83735; 83880; 84443; 85025; 85610; 87086; 87147; 93005; 99283; 99284

== ENCOUNTER 2024-08-07 13:02 | Outpatient (AMB) | payer MEDICAID, SELFPAY ==
--- NOTE | 2024-08-07 13:03 | A.OFFVIS_ITS ---
Intake Visit Reasons: Vaginal discharge Firewood Cutter Required: No Information Interpreted: non-clinical & clinical Digital Proofing And Platemaker: Digital Proofing And Platemaker Present (Alba Wellsankit ROMERO) Accompanied by: Self / Same As Patient Allergies amoxicillin Allergy (Severe, Verified 08/07/24 13:08) hives gabapentin Allergy (Severe, Verified 08/07/24 13:08) Hives vancomycin Allergy (Severe, Verified 08/07/24 13:08) hives penicillin V Allergy (Unknown, Verified 08/07/24 13:08) hives Penicillins Allergy (Unknown, Verified 08/07/24 13:08) HIVES Is last menstrual period known: No (depo) HPI Comments Details: Presenting complaining of vulvovaginal itching PFSH Medical History Depression with anxiety Surgical History History of loop electrical excision procedure (LEEP) History of tubal ligation Family History Mother Diabetes Paternal Grandmother Alzheimer's dementia Social History Household Members: Children Housing: Apartment Alcohol intake: current Alcohol intake frequency: holidays/special occasions only Patient Tobacco Use Status: Former Tobacco user Cigarettes Per Day: 3 Years Smoked: 10 Current occupational status: unemployed Sexual orientation: Straight/Heterosexual Gender identity: Female Female Reproductive History Menstrual Age of Menarche: 8 Review of Systems Const All systems reviewed & are unremarkable except as noted in HPI and below Physical Exam General: Yes no CVA tenderness External Female Exam: normal external appearance and normal appearance of the urethra Speculum Exam - Vagina: normal appearance of the vagina, normal palpation, no lesions and no masses Speculum Exam - Cervix: normal appearance of the cervix, normal palpation, no lesions, no masses and nontender Bimanual exam- vagina & uterus: normal bimanual exam, normal palpation, uterine size normal, normal palpation, uterine shape normal, No Cervical tenderness present and non-tender Bimanual Exam- Adnexa, other: normal adnexae Back/Spine/Pelvis Back: no CVA tenderness Assessment & Plan Assessment & Plan (1) Vulvovaginitis: Code(s): N76.0 - Acute vaginitis Category: Medical Plan: GC/CT, Bacterial Vaginosis panel taken, Terazol 0.8% q.h.s. for 3 days was sent to the patient's pharmacy. The patient was instructed to call if symptoms don't improve in 48 hours. Orders: Orders CT NG by PCR Today B96.89 - Other specified bacterial agents as the cause of diseases classified elsewhere, N76.0 - Acute vaginitis Bacterial Vaginosis Panel Today B96.89 - Other specified bacterial agents as the cause of diseases classified elsewhere, N76.0 - Acute vaginitis Medications: New terconazole 0.8% 1 appful vaginal BEDTIME 3 days 20 grams 0RF Coding Level of Care Code Est Pt Level 3 (19119) Diagnoses Vulvovaginitis N76.0
== END 2024-08-07 13:21 | disposition home or self-care (01) ==
LOC: HO.HWS 13:02
PROVIDERS: Visit Provider Obstetrics & Gynecology
DX: N76.0 Acute vaginitis (principal)
CPT/HCPCS: 99213

== ENCOUNTER 2024-08-07 13:02 | Outpatient (REF) | payer MEDICAID, SELFPAY ==
[2024-08-08 11:21] LABS: Bacterial Vaginosis PCR NEGATIVE (Negative); Candida Group PCR DETECTED (Not Detect); Candida glab krusei PCR NOT DETECTED (Not Detect); Trichomonas vaginalis PCR NOT DETECTED (Not Detect)
[2024-08-08 13:40] LABS: CT PCR NOT DETECTED (Not Detect.); NG PCR NOT DETECTED (Not Detect.)
== END 2024-08-07 13:03 | disposition home or self-care (01) ==
LOC: HO.LNP 13:02
PROVIDERS: Visit Provider Obstetrics & Gynecology
DX: N76.0 Acute vaginitis (principal); B96.89 Other specified bacterial agents as the cause of diseases classified elsewhere
CPT/HCPCS: 0352U; 87491; 87591; 99212

== ENCOUNTER 2024-11-16 10:10 | Outpatient (AMB) | payer MEDICAID, SELFPAY ==
--- NOTE | 2024-11-16 11:17 | MHC.OFFVIS ---
Vital Signs 11/16/24 11:31 Height 5 ft 9 in Weight 221 lb BMI 32.6 BP 118/78 Intake Visit Reasons: late menses Market Research Lead Services: Market Research Lead Present Information Interpreted: clinical only Production Estimator: Production Estimator Present Allergies amoxicillin Allergy (Severe, Verified 11/16/24 11:32) hives gabapentin Allergy (Severe, Verified 11/16/24 11:32) Hives vancomycin Allergy (Severe, Verified 11/16/24 11:32) hives penicillin V Allergy (Unknown, Verified 11/16/24 11:32) hives Penicillins Allergy (Unknown, Verified 11/16/24 11:32) HIVES Medication List - Last Reconciled 11/16/24 by Tati Jeff CNM No Known Home Meds Is last menstrual period known: Yes Last menstrual period: 10/02/24 HPI HPI late menses: Details: Patient is here because her menses are late. Her last menstrual period was October 06 she gets it for about a week they have been very regular for the last year she has stopped Depo last December 15 she was on it to help control very heavy long periods they are heavy currently for about 2-3 days and then trickle off but are a full week needing protection. She had her tubes tied at this time she is not looking for a because she knows it would be an expensive proposition to either reverse her tubal ligation or do IVF. She just wants to be sure she is not she has had some nausea when she brushes her teeth soon she would feel relieved if she could get a serum HCG to double check urine HCG which was negative here in the office [facility] Medical History Depression with anxiety Surgical History History of loop electrical excision procedure (LEEP) History of tubal ligation Family History Mother Diabetes Paternal Grandmother Alzheimer's dementia Social History Household Members: Children Housing: Apartment Alcohol intake: current Alcohol intake frequency: holidays/special occasions only Patient Tobacco Use Status: Former Tobacco user Cigarettes Per Day: 3 Years Smoked: 10 Current occupational status: unemployed Sexual orientation: Straight/Heterosexual Gender identity: Female Female Reproductive History Menstrual Age of Menarche: 8 Date of last menstrual period: 10/02/24 control method: permanent sterilization Total pregnancies: 2 Full term: 2 Date of last pap smear: 10/06/23 (negative) History of abnormal pap smear: Yes (hx. Leep,CIN1,CIN3) Physical Exam Vital Signs: Last Vital Signs BP 118/78 11/16/24 11:31 BMI result Body Mass Index 32.6 Results AMB Test Urine AMB Test Urine Negative Last Edit by Alejandra Adkins CMA on 11/16/24 11:17 Results Reviewed Results Reviewed: Laboratory Last Values [facility]st Clinic Negative 11/16/24 11:16 Name: Victoria Richard Age/Sex: 32/F Attending: Evangelist Leone MD : 1990 Submitted by: Evangelist Leone MD Copies to: MR #: [id number] Status: [facility] Collected: 01/15/23 Location: [facility] Received: 01/15/23 Diagnosis A. Cervix, at 12:00, conization: Squamous mucosa; no endocervical glandular component; negative for dysplasia. B. Endocervix, conization: Squamous mucosa; no endocervical glandular component; negative for dysplasia. C. Endocervix, post cone curettage: Squamous and endocervical glandular mucosa with inflammation and reactive changes; negative for dysplasia. Clinical History Mild cervical dysplasia Microscopic Description Multiple microscopic sections reviewed. Material Received A: Cervical cone at 12 B: Endocervix C: Post cone ECC Gross Description Received in three parts. Part A: Received in formalin labeled Cervical cone is a 1.6 cm. in diameter and up to 0.6 cm. in length, previously incised, C-shaped, cervical LEEP biopsy specimen. As stated on the specimen container and specimen requisition slip, a stitch denotes 12 o'clock. The specimen is fragmented and incised at 4 - 6 o'clock. A squamocolumnar junction is not identified, rather a glistening, smooth, byrd, white-pink exocervical mucosa. The margins are inked and the specimen is serially sectioned to reveal rubbery, byrd, white-pink fibrous cut surfaces. The specimen is entirely submitted in cassettes A1 - A4, in a clockwise fashion, beginning at 6 o'clock, in cassette A1. Part B: Received in formalin labeled Endocervix is a 1.1 x 0.6 x 0.4 cm., rubbery, cauterized, irregular fragment of cervical LEEP biopsy specimen. The convex surface is inked. A mucosa is not identified. The specimen is serially sectioned to reveal dense, gritty, rubbery, byrd-white fibrous tissue. The specimen is entirely submitted in a single cassette labeled B. Part C: Received in formalin labeled Post cone ECC is a 0.3 x 0.2 x 0.1 cm. aggregate of mucus, blood Patient: Victoria Richard Age/Sex: 32/F MR#: [id number] Page 1 of 2 Surgical Pathology [id number] and shards of jimenes-white tissue. The specimen is submitted in toto in a single cassette labeled C. ALICJA NOTE: Some or all of the immunohistochemical tests reported herein may have been developed and their performance characteristics determined by [facility]. They have not been cleared or approved by the U.S. Food and Drug Administration (FDA). However, the FDA has determined that such clearance or approval is not necessary. This laboratory is certified under the Clinical Laboratory Improvement Amendments of 1988 (CLIA) as qualified to perform high complexity clinical laboratory testing. Electronically Signed By: Cristina Winter 01/20/23 1126 Patient: Victoria Richard Age/Sex: 32/F MR#: [id number] Name: Victoria Richard Age/Sex: 33/F Attending: Evangelist Leone MD : 1990 Submitted by: Evangelist Leone MD Copies to: MR #: [id number] Status: DEP REF Collected: 10/06/23 [facility] Received: 10/07/23 Interpretation Satisfactory for evaluation. Coccobacilli consistent with shift in vaginal noy. Negative for intraepithelial lesion or malignancy. HPV mRNA E6/E7: NOT DETECTED This assay detects E6/E7 viral messenger RNA (mRNA) from 14 high-risk HPV types (16, 18, 31, 33, 35, 39, 45, 51, 52, 56, 58, 59, 66, 68) HPV testing performed by [facility], [place], [place]. See reference laboratory portion of the EMR for entire report. Clinical Information LMP: Depoprovera Previous PAP test: 2021, ALEX I Other history: Abnormal uterine and vaginal bleeding Material Received ThinPrep-Cervical Electronically Signed By: PAMELA Mcdaniel ([facility]) 10/28/23 4503 The Pap Test is a screening procedure with the inherent possibility of both false negative and false positive results. Results should be interpreted in the context of historic and current clinical findings. Reliability of the Pap Test is enhanced by performing the test on a regular repetitive basis. Patient: Victoria Richard Age/Sex: 33/F MR#: [id number] Page 1 of 1 Assessment & Plan Assessment & Plan (1) Late menses: Comment: LMP 10/06/2024 regular in last year after stopping Depo. Has had tubal ligation wishes to be sure it is negative. Code(s): N92.6 - Irregular menstruation, unspecified Category: Medical (2) Dysplasia of cervix, low grade (ALEX 1): Comment: Status post LEEP cone with post cone ECC; Code(s): N87.0 - Mild cervical dysplasia Category: Medical Plan Reviewed all the issues that can contribute to the or irregular menses. She does not think she is under any stress in fact things are good right now she has been in fact losing weight and has gone down from about 250-221 and she is about that. She is not considering a tubal ligation reversal or anything at this time. She just wants to be sure she does not have an ectopic or anything she is not having any other symptoms other than some nausea when she brushed her teeth. 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 She is on the portal so can get her results I did review that if it were anything other than less than 2, that would constitute the positive and we would follow it to 0 with a every 2 day lab draws. She is aware of the signs and symptoms of the and would seek care accordingly. I reviewed her Pap smear history and follow-up post LEEP 2022.. She has an appointment for user acceptance tester annual exam in December of 2024 coming up. Orders: Orders AMB HCG Urine Test Today Z32.02 - Encounter for test, result negative HCG Quantitative Today N92.6 - Irregular menstruation, unspecified Coding Level of Care Code Est Pt Level 3 (69857) Diagnoses Late menses N92.6 Dysplasia of cervix, low grade (ALEX 1) N87.0
[2024-11-16 11:31] VITALS: BP 118/78; BMI 32.6
== END 2024-11-16 12:10 | disposition home or self-care (01) ==
PROVIDERS: Visit Provider Advanced Practice Midwife
DX: N92.6 Irregular menstruation, unspecified (principal); N87.0 Mild cervical dysplasia; Z32.02 Encounter for pregnancy test, result negative
CPT/HCPCS: 99213

== ENCOUNTER → 2024-11-16 10:10 | Outpatient (BNVA) | payer MEDICAID, SELFPAY | PROVIDERS: Visit Provider Advanced Practice Midwife | DX: N92.6 Irregular menstruation, unspecified (principal); N87.0 Mild cervical dysplasia; Z32.02 Encounter for pregnancy test, result negative | CPT/HCPCS: 81025; 99212 ==

== ENCOUNTER 2024-11-16 12:17 | Outpatient (REF) | payer MEDICAID, SELFPAY ==
[2024-11-16 13:41] LABS: HCG Quantitative < 2 mIU/mL
== END 2024-11-16 12:18 | disposition home or self-care (01) ==
LOC: HO.HHCL 12:17
PROVIDERS: Visit Provider Advanced Practice Midwife
DX: N92.6 Irregular menstruation, unspecified (principal); Z32.02 Encounter for pregnancy test, result negative
CPT/HCPCS: 36415; 84702

== ENCOUNTER 2025-03-13 14:41 | Outpatient (AMB) | payer MEDICAID, SELFPAY ==
[2025-03-13 14:59] VITALS: BMI 32.6
--- NOTE | 2025-03-13 14:59 | A.OFFVIS_ITS ---
Vital Signs 03/13/25 14:59 Height 5 ft 9 in Weight 221 lb BMI 32.6 Intake Visit Reasons: Heavy Bleeding Nuclear Radiologist Required: No Information Interpreted: non-clinical & clinical Residential Program Coordinator: Residential Program Coordinator Present (Alba Corbett HEATHER) Accompanied by: Self / Same As Patient Allergies amoxicillin Allergy (Severe, Verified 03/13/25 14:59) hives gabapentin Allergy (Severe, Verified 03/13/25 14:59) Hives vancomycin Allergy (Severe, Verified 03/13/25 14:59) hives penicillin V Allergy (Unknown, Verified 03/13/25 14:59) hives Penicillins Allergy (Unknown, Verified 03/13/25 14:59) HIVES HPI Comments Details: The patient is presenting c/o irregular bleeding associated with passage of blood clots and abdominal cramping. Last co testing was in 10/14 was negative [facility] Medical History (Updated 03/13/25 @ 15:14 by Evangelist Leone MD) Depression with anxiety Surgical History (Updated 03/13/25 @ 15:13 by Evangelist Leone MD) History of loop electrical excision procedure (LEEP) History of tubal ligation Family History Mother Diabetes Paternal Grandmother Alzheimer's dementia Social History Household Members: Children Housing: Apartment Alcohol intake: current Alcohol intake frequency: holidays/special occasions only Patient Tobacco Use Status: Former Tobacco user Cigarettes Per Day: 3 Years Smoked: 10 Current occupational status: unemployed Sexual orientation: Straight/Heterosexual Gender identity: Female Female Reproductive History Menstrual Age of Menarche: 8 Review of Systems Const All systems reviewed & are unremarkable except as noted in HPI and below Card Reports as per HPI Resp Reports as per HPI GI Reports as per HPI and Reports no additional complaints Reports as per HPI Physical Exam Vital Signs: BMI result Body Mass Index 32.6 Const General: cooperative, healthy appearing and comfortable Chest Chest palpation & inspection: normal inspection of the chest and normal palpation of entire chest wall Breast/axilla inspection: normal inspection of the breasts and normal inspection of the axillae Breast/axilla palpation: normal palpation of the breasts, normal palpation of the axillae and no axillary lymphadenopathy Resp Effort & Inspection: normal respiratory effort Auscultation: clear to auscultation bilaterally Percussion: percussion normal Cardio Palpation: normal PMI Rate: regular rate Rhythm: regular rhythm Heart sounds: no murmurs and no rubs Peripheral pulses: Peripheral pulses 2+ throughout GI Inspection: Yes normal to inspection Palpation (GI): Soft to palpation, nontender, no guarding, not rigid and No hepatosplenomegaly present Percussion: Yes normal to percussion Auscultation: normal bowel sounds Rectal Exam - Female: deferred General: Yes bladder normal to palpation External Female Exam: No lesion Speculum Exam - Vagina: normal appearance of the vagina, normal palpation, normal vaginal discharge and not erythematous Speculum Exam - Cervix: normal appearance of the cervix and normal palpation Bimanual exam- vagina & uterus: normal bimanual exam, normal palpation, uterine size normal, bladder normal to palpation, consistency normal and normal palpation Bimanual Exam- Adnexa, other: normal adnexae, no masses and no tenderness Assessment & Plan Assessment & Plan (1) Abnormal uterine bleeding: Code(s): N93.9 - Abnormal uterine and vaginal bleeding, unspecified Category: Medical Plan: GC and chlamydia taken CBC, TSH, HCG, and pelvic ultrasound ordered. Discussed with the patient the different causes of abnormal bleeding including thyroid disorders, uterine and ovarian pathology, endometrial hyperplasia, carcinoma and other potential causes. Discussed with the patient the work up including CBC (to r/o anemia), TSH, pelvic Ultrasound, endometrial biopsy to r/o endometrial pathology. All questions answered and the patient verbalized understanding. Instructed the patient to schedule an appointment for an endometrial biopsy in 2 weeks. Orders: Orders Complete Blood Count no Diff Today N93.9 - Abnormal uterine and vaginal bleeding, unspecified US pelvic and transvaginal Today N93.9 - Abnormal uterine and vaginal bleeding, unspecified TSH reflex Free T4 Today N93.9 - Abnormal uterine and vaginal bleeding, unspecified HCG Quantitative Today N93.9 - Abnormal uterine and vaginal bleeding, unspecified Coding Level of Care Code Est Pt Level 3 (36708) Diagnoses Abnormal uterine bleeding N93.9
--- OUTSIDE RECORDS SUMMARY | 2025-03-13 17:31 | XMS_ITS ---
Author Name [facility] Organization Unknown Encounters Encounter Type Encounter Reason Primary Diagnosis Location Date Ambulatory [facility] 03/23/2023 Care Team Organization Name Specialty Phone Email Start Date End Da te [facility] [employer] Information Services AG NO PCP Primary Care 03/23/2023 03/23/2023 [facility] PCP,No Primary Care 03/23/2023
--- OUTSIDE RECORDS SUMMARY | 2025-03-13 17:31 | XMS_ITS | Clinical Summary ---
Author Organization [facility] Address [address] [place] [address] Care Team Providers Care Operating Cost Clerk Name Role Phone Unavailable Primary Care Provider Unavailabl e Social History Tobacco Use Types Packs/Day Years Used Date Smoking Tobacco: Never Assessed Comments Unknown Sex and Gender Information Value Date Recorded Sex Assigned at Not on file Legal Sex Female 2:33 PM EST Gender Identity Not on file Sexual Orientation Not on file Plan of Treatment Health Maintenance Due Date Last Done Comments DTaP,Tdap,and Td Vaccines (1 - Tdap) 2007 Hepatitis B Vaccines (1 of 3 - 19+ 3-dose series) 2007 Cervical Cancer Screening: P ap Smear 2009 Depression Screening 10/21/2022 HIV Screening 10/21/2022 Hepatitis C Screening 10/21/2022 Social Influencers of Health Screening 10/21/2022 COVID-19 Vaccine ( - 2023-2 5 season) 2024 Influenza Vaccine (Season Ended) 2025 HIB Vaccines Aged Out No longer eligi ble based on patient's age to complete this topic HPV Vaccines Aged Out No longer eligi ble based on patient's age to complete this topic Hepatitis A Vaccines Aged Out No long er eligible based on patient's age to complete this topic IPV Vaccines Aged Out No longer eligi ble based on patient's age to complete this topic MMR Vaccines Aged Out No longer eligi ble based on patient's age to complete this topic Meningococcal ACWY Vaccine Aged Out N o longer eligible based on patient's age to complete this topic Meningococcal B Vaccine Aged Out No l onger eligible based on patient's age to complete this topic Pneumococcal Vaccine: Pediat rics (0 to 5 Years) and At-Risk Patients (6 to 64 Years) Aged Out No longer eligible b ased on patient's age to complete this topic RSV Immunization Patients Un valeria 20 months Aged Out No longer eligible b ased on patient's age to complete this topic Varicella Vaccines Aged Out No longer eligible based on patient's age to complete this topic
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
--- OUTSIDE RECORDS SUMMARY | 2025-03-13 17:31 | XMS_ITS | Clinical Summary ---
Author Organization [facility] Address [address] [id number] Care Team Providers Care Shoe Stamper Name Role Phone Pcp, No Primary Care Provider Unavailabl e Social History Tobacco Use Types Packs/Day Years Used Date Smoking Tobacco: Never Assessed Comments Unknown Sex and Gender Information Value Date Recorded Sex Assigned at Not on file Legal Sex Female 4:10 PM EDT Gender Identity Not on file Sexual Orientation Not on file Plan of Treatment Health Maintenance Due Date Last Done Comments Hepatitis C Virus Screening 1988 HIV Screening 2001 DTaP/Tdap/Td Vaccines (1 - Tdap) 2007 Hepatitis B Vaccines (1 of 3 - 19+ 3-dose series) 2007 Pneumococcal Vaccine: Pediatric (0-5 Years) and At-Risk Patients (6 to 49 Years) (1 of 2 - PCV) 2007 Pap Smear (Ages 21-65) 2009 Influenza Vaccine 06/22/2024 11/05/2022, 10/28/2018, 11/05/2016 COVID-19 Vaccine ( - 2023-2 5 season) 2024 HPV Vaccines Aged Out No longer eligi ble based on patient's age to complete this topic Care Teams Shoe Stamper Relationship Specialty Start Date End Date Pcp, No [address] [place] [address] PCP - General 03/16/23
== END 2025-03-13 15:20 | disposition home or self-care (01) ==
LOC: HO.HWS 14:41
PROVIDERS: Visit Provider Obstetrics & Gynecology
DX: N93.9 Abnormal uterine and vaginal bleeding, unspecified (principal)
CPT/HCPCS: 99213

== ENCOUNTER 2025-03-13 14:41 | Outpatient (REF) | payer MEDICAID, SELFPAY ==
[2025-03-13 16:23] LABS: Hematocrit 37.2 % (37.0-47.0); Hemoglobin 12.5 g/dl (12.0-16.0); Mean Corpuscular HGB Conc 33.6 g/dl (31.0-35.0); Mean Corpuscular Hemoglobin 29.8 pg (27.0-33.0); Mean Corpuscular Volume 88.8 fL (80.0-98.0); Mean Platelet Volume 9.9 fL (9.4-12.3); Platelet Count 318 X10*3/uL (160-400); Red Blood Count 4.19 X10*6/uL (4.20-5.50); Red Cell Distribution Width 12.8 % (11.0-16.0); White Blood Count 8.3 X10*3/uL (4.8-10.8)
[2025-03-13 17:07] LABS: HCG Quantitative < 2 mIU/mL
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
--- OUTSIDE RECORDS SUMMARY | 2025-03-13 18:19 | XMS_ITS | Clinical Summary ---
Author Organization [facility] Address [address] [phone] Care Team Providers Care Director Of Development And Marketing Name Role Phone Pcp, No Primary Care [...] age to complete this topic Care Teams Director Of Development And Marketing Relationship Specialty Start Date End Date Pcp, No [address] [place] [address] PCP - General 03/16/23
--- OUTSIDE RECORDS SUMMARY | 2025-03-13 18:19 | XMS_ITS | Clinical Summary ---
Author Organization [facility] Address [address] [place] [address] Care Team Providers Care Baler Operator Name Role Phone Unavailable Primary Care Provider [...]
[2025-03-14 10:09] LABS: CT PCR NOT DETECTED (Not Detect.); NG PCR NOT DETECTED (Not Detect.)
== END 2025-03-13 14:42 | disposition home or self-care (01) ==
LOC: HO.LNP 14:41
PROVIDERS: Visit Provider Obstetrics & Gynecology
DX: N93.9 Abnormal uterine and vaginal bleeding, unspecified (principal)
CPT/HCPCS: 84443; 84702; 85027; 87491; 87591; 99212

== ENCOUNTER 2025-03-13 15:37 | Outpatient (REF) | payer MEDICAID, SELFPAY | END 2025-03-13 15:38 | disposition home or self-care (01) | LOC: HO.HHCL 15:37 | PROVIDERS: Visit Provider Obstetrics & Gynecology | DX: Z13.89 Encounter for screening for other disorder (principal) ==

== ENCOUNTER 2025-04-10 13:30 | Outpatient (REF) | payer MEDICAID, SELFPAY ==
--- NOTE | ~2025-04-10 | US_ITS ---
EXAMINATION: US PELVIS TRANSABDOMINAL AND TRANSVAGINAL HISTORY: N93.9 - Abnormal uterine and vaginal bleeding, unspecified COMPARISON: Comparison is made with the prior examination dated 11/03/2023. TECHNIQUE: Transabdominal and endovaginal real-time 2D briceno-scale ultrasound was performed. FINDINGS: Uterus: The uterus is normal in size, measuring 7.4 x 3.8 x 4.1 cm. Myometrium has a normal echotexture. No fibroids are identified. Endometrium: The endometrial stripe measures 9 mm in thickness. There is a small amount of fluid in the endometrial canal. There are nabothian cysts in the cervix. Right ovary: The right ovary measures 3.1 x 1.9 x 2.2 cm. A 2.0 x 1.2 x 1.9 cm heterogeneously hypoechoic area may represent a corpus luteum. Left ovary: The left ovary measures 2.4 x 1.3 x 2.1 cm. The left ovary is normal in size and echotexture. Pelvic fluid: There is trace free fluid in the right adnexa.. US/US pelvic and transvaginal IMPRESSION: Small amount of fluid in the endometrial canal. Trace free fluid in the right adnexa. Electronically signed by: Quentin Martinez MD 04/10/2025 03:57 PM EDT
--- OUTSIDE RECORDS SUMMARY | 2025-04-10 14:41 | XMS_ITS | Clinical Summary ---
Author Organization [facility] Address [address] [phone] Care Team Providers Care Deputy Harbormaster Name Role Phone Pcp, No Primary Care [...] PCV) 2007 Pap Smear (Ages 21-65) 2009 COVID-19 Vaccine (1 - 2023-2 5 season) 2024 Influenza Vaccine 06/22/2025 11/05/2022, 10/28/2018, 11/05/2016 HPV Vaccines Aged Out No longer eligi ble based on patient's age to complete this topic Care Teams Deputy Harbormaster Relationship Specialty Start Date End Date Pcp, No [address] [place] [address] PCP - General 03/16/23
--- OUTSIDE RECORDS SUMMARY | 2025-04-10 14:41 | XMS_ITS | Clinical Summary ---
Author Organization [facility] Address [address] [place] [address] Phone Care Team Providers Care Food Counselor Name Role Phone Unavailable Primary Care Provider Unavailabl e Allergies Active Allergy Reactions Criticality Noted Date Comments Amoxicillin Hives Medium 03/25/2025 Penicillins Hives Medium 03/25/2025 Vancomycin Hives Medium 03/25/2025 Medications cyclobenzaprine (FLEXERIL) 10 mg tablet Take 1 tablet (10 mg total) by mouth 2 (two) times a day if needed for muscle spasms for up to 5 days. 10 tablet 03/25/2025 Active ibuprofen (ADVIL,MOTRIN) 600 mg tablet Take 1 tablet (600 mg total) by mouth every 6 (six) hours if needed for mild pain (for pain) for up to 10 days. 30 tablet 03/25/2025 Encounters Date Type Department Care Team Description 03/25/2025 9:42 PM EDT - 03/25/2025 11:29 PM EDT Emergency [facility] Emergency [address] [place] [address] Back strain, initial encounter (Primary Dx) Discharge Disposition: Home or Self Care from Last 3 Months Medical History Medical History Date Comments No known health problems Social History Tobacco Use Types Packs/Day Years Used Date Smoking Tobacco: Every Day Cigarettes Smokeless Tobacco: Never Tobacco Cessation:Ready to Q uit: No; Counseling Given: Not Answered Comments Unknown Sex and Gender Information Value Date Recorded Sex Assigned at Not on file Legal Sex Female 2:33 PM EST Gender Identity Not on file Sexual Orientation Not on file Obstetrics History Last Filed Vital Signs Vital Sign Reading Time Taken Comments Blood Pressure 114/71 03/25/2025 11:28 PM EDT Pulse 66 03/25/2025 11:28 PM EDT Temperature 36.9 ??C (98.5 ??F) 03/25/2025 11:28 PM E DT Respiratory Rate 16 03/25/2025 11:28 PM EDT Oxygen Saturation 99% 03/25/2025 11:28 PM EDT Inhaled Oxygen Concentration - - Weight 98.4 kg (217 lb) 03/25/2025 9:26 PM EDT Height 175.3 cm (5' 9 ) 03/25/2025 9:26 PM EDT Body Mass Index 32.05 03/25/2025 9:26 PM EDT Plan of Treatment Health Maintenance Due Date Last Done Comments Cervical Cancer Screening: P ap Smear 2009 HIV Screening 10/21/2022 Social Influencers of Health Screening 10/21/2022 COVID-19 Vaccine (2023-2 5 season) 2024 06/05/2022, 07/08/2021, 06/10/2021 Hepatitis B Vaccines (2 of 3 - 19+ 3-dose series) 11/20/2024 10/23/2024 Influenza Vaccine (Season Ended) 2025 11/05/2022, 10/28/2018, 11/05/2016 Depression Screening 08/31/2025 08/31/2024 DTaP,Tdap,and Td Vaccines (3 - Td or Tdap) 10/28/2028 10/28/2018, 11/05/2016 Cholesterol Screening (Lipid Panel) 08/31/2029 08/31/2024, 08/31/2024 Hepatitis C Screening Completed 06/29/2023 Pneumococcal Vaccine: Pediatrics (0 to 5 Years) and At-Risk Patients (6 to 64 Years) Completed 07/02/2023 Varicella Vaccines Aged Out 10/23/2024 No longer eligible based on patient's age to complete this topic HIB Vaccines Aged Out No longer eligi [...] to complete this topic RSV Immunization Patients Under 20 months Aged Out No longer eligible b ased on patient's age to complete this topic Insurance MEDICAID - [place]
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
== END 2025-04-10 13:31 | disposition home or self-care (01) ==
LOC: HO.US 13:30
PROVIDERS: Visit Provider Obstetrics & Gynecology
DX: N93.9 Abnormal uterine and vaginal bleeding, unspecified (principal)
CPT/HCPCS: 76830; 76856

== ENCOUNTER → 2025-04-10 13:32 | Outpatient (BNV) | payer MEDICAID, SELFPAY | PROVIDERS: Visit Provider Radiology Diagnostic Radiology | DX: N83.201 Unspecified ovarian cyst, right side (principal) | CPT/HCPCS: 76830; 76856 ==

== ENCOUNTER 2025-04-19 15:18 | Outpatient (AMB) | payer MEDICAID, SELFPAY ==
--- OUTSIDE RECORDS SUMMARY | 2025-04-19 15:20 | XMS_ITS | Clinical Summary ---
Author Organization [facility] Address [address] [place] [address] Care Team Providers Care Mainframe Consultant Name Role Phone Pcp, No Primary Care [...] age to complete this topic Care Teams Mainframe Consultant Relationship Specialty Start Date End Date Pcp, No [address] [place] [address] PCP - General 03/16/23
--- NOTE | 2025-04-19 15:42 | A.OFFVIS_ITS ---
Intake Visit Reasons: EMB Allergies amoxicillin Allergy (Severe, Verified 03/13/25 14:59) hives gabapentin Allergy (Severe, Verified 03/13/25 14:59) Hives vancomycin Allergy (Severe, Verified 03/13/25 14:59) hives penicillin V Allergy (Unknown, Verified 03/13/25 14:59) hives Penicillins Allergy (Unknown, Verified 03/13/25 14:59) HIVES HPI Comments Details: Presenting for EMB [facility] Medical History Depression with anxiety Surgical History History of loop electrical excision procedure (LEEP) History of tubal ligation Family History Mother Diabetes Paternal Grandmother Alzheimer's dementia Social History Household Members: Children Housing: Apartment Alcohol intake: current Alcohol intake frequency: holidays/special occasions only Patient Tobacco Use Status: Former Tobacco user Cigarettes Per Day: 3 Years Smoked: 10 Current occupational status: unemployed Sexual orientation: Straight/Heterosexual Gender identity: Female Female Reproductive History Menstrual Age of Menarche: 8 Review of Systems Const All systems reviewed & are unremarkable except as noted in HPI and below Reports as per HPI and Reports no additional complaints GI Reports no additional complaints Reports no additional complaints Office Procedures Endometrial Biopsy Details: The patient was counseled regarding the indication and benefits of endometrial sampling to rule out endometrial pathology including not limited to endometrial hyperplasia or endometrial cancer and others; The alternatives (Either do nothing vs. hysteroscopy D&C) & the risks were discussed with the patient including but not limited: pain, uterine perforation, bleeding, infection, possible injury to bladder, bowel, ureter, possible need for blood transfusion with all its possible risks. The patient verbalized understanding all questions answered and signed consent. Urine test done in the office was negative The patient was placed into the dorsal lithotomy position; a speculum was inserted in the vagina. Using aseptic technique for the procedure, the cervix was cleansed with Betadine. The anterior lip of the cervix was grasped with a single tooth tenaculum. The uterus was sounded to 7 cm with a 4 mm Pipelle was used. Tissues samples were obtained and placed in formalin, in a patient labeled container and sent to the pathology department. At the end of the procedure, there was minimal bleeding noted The patient tolerated the procedure well and was discharged in good condition with the following instructions: Nothing in the vagina until the bleeding stops. No sex until the bleeding stops, to call if any of the following occurs: fever (>100.4), flu-like symptoms, abdominal pain, heavy bleeding, four smelling vaginal discharge. The patient was instructed to schedule a Follow up appointment in 2 weeks to discuss pathology results of the biopsy and treatment options. This note was generated with a voice recognition program. Some errors may have been overlooked during the review of this note. Sometimes these errors may affect the content or meaning of a given sentence. [id number] Biopsy Assessment & Plan Assessment & Plan (1) Abnormal uterine bleeding: Code(s): N93.9 - Abnormal uterine and vaginal bleeding, unspecified Category: Medical Plan: EMB done, see procedure Orders: Orders AMB Endometrial Biopsy Today N93.9 - Abnormal uterine and vaginal bleeding, unspecified Coding Level of Care Code Procedure Only Diagnoses Abnormal uterine bleeding N93.9 CPT Codes Endometrial Biopsy - CPT: 93750-[id number] Biopsy ([id number])
== END 2025-04-19 16:20 | disposition home or self-care (01) ==
LOC: HO.HWS 15:18
PROVIDERS: Visit Provider Obstetrics & Gynecology
DX: N93.9 Abnormal uterine and vaginal bleeding, unspecified (principal)
CPT/HCPCS: 58100

== ENCOUNTER 2025-04-19 15:18 | Outpatient (REF) | payer MEDICAID, SELFPAY | END 2025-04-19 15:19 | disposition home or self-care (01) | LOC: HO.LNP 15:18 | PROVIDERS: Visit Provider Obstetrics & Gynecology | DX: N93.9 Abnormal uterine and vaginal bleeding, unspecified (principal) | CPT/HCPCS: 58100; 88305 ==

== ENCOUNTER 2025-04-25 13:31 | Outpatient (AMB) | payer MEDICAID, SELFPAY ==
--- NOTE | 2025-04-25 13:32 | MHC.OFFVIS ---
Vital Signs 04/25/25 13:34 Height 5 ft 9 in Weight 221 lb BMI 32.6 Intake Visit Reasons: Ultra sound follow up /EMB results Allergies amoxicillin Allergy (Severe, Verified 03/13/25 14:59) hives gabapentin Allergy (Severe, Verified 03/13/25 14:59) Hives vancomycin Allergy (Severe, Verified 03/13/25 14:59) hives penicillin V Allergy (Unknown, Verified 03/13/25 14:59) hives Penicillins Allergy (Unknown, Verified 03/13/25 14:59) HIVES HPI Comments Details: The patient is presenting for follow-up to discuss the results of her abnormal uterine bleeding workup and options of treatment. The following workup was done.: H&H= 12.5/37.2 TSH, hCG, GC and chlamydia were negative. Endometrial biopsy pathology showed the following: Proliferative endometrium with stromal breakdown; negative for atypia, hyperplasia or malignancy. Co testing was done in 12/14 was negative. Pelvic ultrasound showed the following: Uterus: The uterus is normal in size, measuring 7.4 x 3.8 x 4.1 cm. Myometrium has a normal echotexture. No fibroids are identified. Endometrium: The endometrial stripe measures 9 mm in thickness. There is a small amount of fluid in the endometrial canal. There are nabothian cysts in the cervix. Right ovary: The right ovary measures 3.1 x 1.9 x 2.2 cm. A 2.0 x 1.2 x 1.9 cm heterogeneously hypoechoic area may represent a corpus luteum. Left ovary: The left ovary measures 2.4 x 1.3 x 2.1 cm. The left ovary is normal in size and echotexture. Pelvic fluid: There is trace free fluid in the right adnexa. [facility] Medical History Depression with anxiety Surgical History History of loop electrical excision procedure (LEEP) History of tubal ligation Family History Mother Diabetes Paternal Grandmother Alzheimer's dementia Social History Household Members: Children Housing: Apartment Alcohol intake: current Alcohol intake frequency: holidays/special occasions only Patient Tobacco Use Status: Former Tobacco user Cigarettes Per Day: 3 Years Smoked: 10 Current occupational status: unemployed Sexual orientation: Straight/Heterosexual Gender identity: Female Female Reproductive History Menstrual Age of Menarche: 8 Review of Systems Const All systems reviewed & are unremarkable except as noted in HPI and below Reports as per HPI and Reports no additional complaints GI Reports no additional complaints Reports no additional complaints Physical Exam Vital Signs: BMI result Body Mass Index 32.6 Assessment & Plan Assessment & Plan (1) Abnormal uterine bleeding: Code(s): N93.9 - Abnormal uterine and vaginal bleeding, unspecified Category: Medical Plan: Discussed with the patient the results of the work up done and options of treatment including but not limited to BCP's, cyclic Progesterone, Mirena IUD, endometrial ablation and hysterectomy. All pros, cons, risks and benefits of each option were discussed with the patient and the patient decided to go ahead with cyclic Provera, so a more detailed discussion re: Progesterone treatment including mechanism of action, benefits (regular menses, endometrial protection form unopposed estrogen and reduction in the risk of endometrial hyperplasia and/or cancer ...), risks (Thrombosis, mood changes, weight gain, breast soreness, ? increased breast ca, others). Instructions were given to use a back- up method for contraception since this is not a method control, take the medication 1 tablet daily starting day 15-24 and to schedule a 3 months follow-up appointment; patient verbalized understanding and agreed with the plan. Medications: New medroxyprogesterone (Provera) start Provera 1 tablet daily from day 15-24 cyclically every months, day 1 being 1st day of menses 10 mg PO DAILY 10 days 30 tabs 0RF Coding Level of Care Code Est Pt Level 3 (62142) Diagnoses Abnormal uterine bleeding N93.9
[2025-04-25 13:34] VITALS: BMI 32.6
== END 2025-04-25 13:49 | disposition home or self-care (01) ==
LOC: HO.HWS 13:31
PROVIDERS: Visit Provider Obstetrics & Gynecology
DX: N93.9 Abnormal uterine and vaginal bleeding, unspecified (principal)
CPT/HCPCS: 99213

== ENCOUNTER → 2025-04-25 13:31 | Outpatient (BNVA) | payer MEDICAID, SELFPAY | PROVIDERS: Visit Provider Obstetrics & Gynecology | DX: N93.9 Abnormal uterine and vaginal bleeding, unspecified (principal) | CPT/HCPCS: 99212 ==

== ENCOUNTER 2025-07-18 15:46 | Outpatient (REF) | payer MEDICAID, SELFPAY ==
[2025-07-19 04:37] LABS: Bacterial Vaginosis PCR POSITIVE (Negative); Candida Group PCR NOT DETECTED (Not Detect); Candida glab krusei PCR NOT DETECTED (Not Detect); Trichomonas vaginalis PCR NOT DETECTED (Not Detect)
[2025-07-19 05:08] LABS: CT PCR NOT DETECTED (Not Detect.); NG PCR NOT DETECTED (Not Detect.)
== END 2025-07-18 15:47 | disposition home or self-care (01) ==
LOC: HO.LNP 15:46
PROVIDERS: Visit Provider Obstetrics & Gynecology
DX: N76.0 Acute vaginitis (principal); B96.89 Other specified bacterial agents as the cause of diseases classified elsewhere; Z11.3 Encounter for screening for infections with a predominantly sexual mode of transmission; Z11.8 Encounter for screening for other infectious and parasitic diseases; Z11.2 Encounter for screening for other bacterial diseases
CPT/HCPCS: 81515; 87491; 87591; 99212

== ENCOUNTER 2025-07-18 15:46 | Outpatient (AMB) | payer MEDICAID, SELFPAY ==
--- NOTE | 2025-07-18 15:48 | MHC.OFFVIS ---
Intake Visit Reasons: vaginal itching Assurance Senior Manager Required: No Information Interpreted: non-clinical & clinical Structural Steel Erection Supervisor: Structural Steel Erection Supervisor Present (Nadeen) Accompanied by: Self / Same As Patient Allergies amoxicillin Allergy (Severe, Verified 07/18/25 15:48) hives gabapentin Allergy (Severe, Verified 07/18/25 15:48) Hives vancomycin Allergy (Severe, Verified 07/18/25 15:48) hives penicillin V Allergy (Unknown, Verified 07/18/25 15:48) hives Penicillins Allergy (Unknown, Verified 07/18/25 15:48) HIVES HPI Comments Details: Presenting complaining of vaginal discharge associated with vulvovaginal irritation and no foul odor PFSH Medical History Depression with anxiety Surgical History History of loop electrical excision procedure (LEEP) History of tubal ligation Family History Mother Diabetes Paternal Grandmother Alzheimer's dementia Social History Household Members: Children Housing: Apartment Alcohol intake: current Alcohol intake frequency: holidays/special occasions only Patient Tobacco Use Status: Former Tobacco user Cigarettes Per Day: 3 Years Smoked: 10 Current occupational status: unemployed Sexual orientation: Straight/Heterosexual Gender identity: Female Female Reproductive History Menstrual Age of Menarche: 8 Review of Systems Const All systems reviewed & are unremarkable except as noted in HPI and below Physical Exam General: Yes no CVA tenderness External Female Exam: normal external appearance and normal appearance of the urethra Speculum Exam - Vagina: normal appearance of the vagina, normal palpation, no lesions and no masses Speculum Exam - Cervix: normal appearance of the cervix, normal palpation, no lesions, no masses and nontender Bimanual exam- vagina & uterus: normal bimanual exam, normal palpation, uterine size normal, normal palpation, uterine shape normal, No Cervical tenderness present and non-tender Bimanual Exam- Adnexa, other: normal adnexae Back/Spine/Pelvis Back: no CVA tenderness Assessment & Plan Assessment & Plan (1) Vulvovaginitis: Code(s): N76.0 - Acute vaginitis Category: Medical Plan: GC/CT, Bacterial Vaginosis panel taken, Terazol 0.8% q.h.s. for 3 days was sent to the patient's pharmacy. The patient was instructed to call if symptoms don't improve in 48 hours. Medications: New terconazole 0.8% 1 appful vaginal BEDTIME 20 grams 0RF 3 days Coding Level of Care Code Est Pt Level 3 (22758) Diagnoses Vulvovaginitis N76.0
--- OUTSIDE RECORDS SUMMARY | 2025-07-18 16:53 | XMS_ITS | Clinical Summary ---
Author Organization [employer] Address [address] [facility] [address] [place] [address] Care Team Providers Care Medical Csr Name Role Phone Unavailable Primary Care Provider Unavailabl e Encounters Date Type Department Care Team Description 06/12/2025 Population Health Risk Score [facility] (C3) Department [address] [facility] [address] [place] [address] Provider, Population Health Generic from Last 3 Months Social History Tobacco Use Types Packs/Day Years Used Date Smoking Tobacco: Never Assessed Comments Unknown Sex and Gender Information Value Date Recorded Sex Assigned at Not on file Legal Sex Female 9:31 PM EDT Gender Identity Not on file Sexual Orientation Not on file Plan of Treatment Health Maintenance Due Date Last Done Comments Depression Screening 1988 Lipid Panel 1988 SDOH Screening 1988 Disability Screening 1988 Alcohol/Substance Use Screening 2000 Tobacco Screening 2000 Family Planning (PISQ) 2003 HPV Vaccines (1 - 3-dose series) 2003 Hepatitis C Screening 2006 Pap Smear 2009 Cervical Cancer Screening 2018 HPV/Cotest 2018 COVID-19 Vaccine ( - 2023-2 5 season) 2024 Hepatitis B Vaccines (2 of 3 - 19+ 3-dose series) 11/20/2024 10/23/2024 Influenza Vaccine (#1) 2025 , 10/28/2018, 11/05/2016 DTaP/Tdap/Td Vaccines (3 - T d or Tdap) 10/28/2028 10/28/2018, 11/05/2016 Zoster Vaccines (1 of 2) 2038 RSV Patients and Patients Aged 60 years or older (1 - 1-dose 75+ series) 2063 HIV Screening Completed 06/29/2023, 06/29/2023, 04/01/2023 Pneumococcal Vaccine: Pediatrics (0 to 5 Years) and At-Risk Patients (6 to 49) Years Aged Out 07/02/2023 No longer eligible b ased on patient's [...] patient's age to complete this topic Meningococcal Vaccine Aged Out No duane renee eligible based on patient's age to complete this topic RSV under 20 months Aged Out No longe r eligible based on patient's age to complete this topic Rotavirus Vaccines Aged Out No longer eligible based on patient's age to complete this topic
--- OUTSIDE RECORDS SUMMARY | 2025-07-18 16:53 | XMS_ITS | Clinical Summary ---
Author Organization [facility] Address [address] [place] [address] Phone Care Team Providers Care Instrumentation Fitter Name Role Phone Unavailable Primary Care Provider Unavailabl e Allergies Active Allergy Reactions Criticality Noted Date Comments Amoxicillin Hives Medium 03/25/2025 Penicillins Hives Medium 03/25/2025 Vancomycin Hives Medium 03/25/2025 Medications cyclobenzaprine (FLEXERIL) 10 mg tablet Take 1 tablet (10 mg total) by mouth 2 (two) times a day if needed for muscle spasms for up to 5 days. 10 tablet 03/25/2025 Active Medical History Medical History Date Comments No [...] 66 03/25/2025 11:28 PM EDT Temperature 36.9 C (98.5 F) 03/25/2025 11:28 PM EDT Respiratory Rate 16 03/25/2025 11:28 PM EDT [...] Influencers of Health Screening 10/21/2022 COVID-19 Vaccine (4 - 2023-2 5 season) 2024 06/05/2022, 07/08/2021, 06/10/2021 Hepatitis B Vaccines (2 of 3 - 19+ 3-dose series) 11/20/2024 10/23/2024 Depression Screening 11/22/2024 Influenza Vaccine (#1) 2025 , 10/28/2018, 11/05/2016 DTaP,Tdap,and Td Vaccines (3 - Td or Tdap) 10/28/2028 10/28/2018, 11/05/2016 Cholesterol Screening (Lipid Panel) 08/31/2029 08/31/2024, 08/31/2024 Hepatitis C Screening Completed 06/29/2023 Pneumococcal Vaccine: Pediatrics (0 to 5 Years) and At-Risk Patients (6 to 49 Years) Completed 07/02/2023 Varicella Vaccines Aged Out [...] to complete this topic Insurance MEDICAID - [id number]
--- OUTSIDE RECORDS SUMMARY | 2025-07-18 16:53 | XMS_ITS | Clinical Summary ---
Author Organization [facility] Address [address] [place] [id number] Phone Care Team Providers Care Survey Manager Name Role Phone Pcp, Unknown Primary Care Provider Unavailabl e Allergies Active Allergy Reactions Criticality Noted Date Comments Amoxicillin 04/05/2024 Penicillin 04/05/2024 Vancomycin 04/05/2024 Medications No known medications Immunizations Immunization Administration Dates Next Due INFLUENZA, SPLIT VIRUS, TRIVALENT W/ PRESERVATIV E IM 11/05/2016 Influenza Quadrivalent Preservative Free IM 10/22,10/28/2018 Pneumococcal conjugate PCV20 07/02/2023 Tdap 10/28/2018,11/05/2016 Social History Tobacco Use Types Packs/Day Years Used Date Smoking Tobacco: Some Days Cigarettes Smokeless Tobacco: Never Education Answer Date Recorded Are you interested in more education? Not on julisa e 04/05/2024 Are you concerned about learning? Not on file 04/05/2024 No 04/05/2024 No 04/05/2024 Digital Access Answer Date Recorded No 04/05/2024 No 04/05/2024 Reliable internet access at home? Not on file 04/05/2024 Device with a working camera? Not on file Comments Unknown Sex and Gender Information Value Date Recorded Sex Assigned at Not on file Legal Sex Female 11:37 AM EDT Gender Identity Not on file Sexual Orientation Not on file Last Filed Vital Signs Vital Sign Reading Time Taken Comments Blood Pressure 123/80 04/05/2024 11:46 AM EDT Pulse 66 04/05/2024 11:46 AM EDT Temperature 36.9 C (98.5 F) 04/05/2024 11:46 AM EDT Respiratory Rate 18 04/05/2024 11:46 AM EDT Oxygen Saturation 100% 04/05/2024 11:46 AM EDT Inhaled Oxygen Concentration - - Weight - - Height - - Body Mass Index - - Plan of Treatment Health Maintenance Due Date Last Done Comments DEPRESSION SCREENING 2000 SMOKING Hx and SMOKELESS TOBACCO SCREENING 2001 HIV ONE-TIME SCREENING (18-6 5 YEARS) 2006 PAP SMEAR 2009 COVID-19 VACCINE (2023-2 5 season) 2024 06/05/2022, 07/08/2021, 06/10/2021 INFLUENZA VACCINE (#1) 2025 , 10/28/2018, 11/05/2016 Adult Td,Tdap Booster 10/28/2028 10/28/2018 , 11/05/2016 HEPATITIS C SCREENING Completed 06/29/2023 , 08/09/2020 PNEUMOCOCCAL VACCINES (0-49 years) Completed 07/02/2023 HEPATITIS A VACCINES Aged Out No long er eligible based on patient's age to complete this topic HIB VACCINES Aged Out No longer eligi ble based on patient's age to complete this topic MENINGOCOCCAL VACCINES (ACWY) Aged Out No longer eligible based on patient's age to complete this topic MENINGOCOCCAL VACCINES (B) Aged Out N o longer eligible based on patient's age to complete this topic Medical Devices Not on file Insurance C3 ACO ACO C3 ACO C3 ACO C3 ACO [employer] MCDANIEL [id number] [place] [address] C3 ACO Care Teams Survey Manager Relationship Specialty Start Date End Date Pcp, Unknown PCP - General 04/05/24 Additional Source Comments The information contained in this document represents components of the legal health record. It is not the complete legal health record.[facility]
--- OUTSIDE RECORDS SUMMARY | 2025-07-18 16:53 | XMS_ITS | Clinical Summary ---
Author Organization [facility] Address [address] [place] [address] Care Team Providers Care Furniture Inspector Name Role Phone Pcp, No Primary Care [...] - 19+ 3-dose series) 2007 Pneumococcal Vaccine: Pediat kym (0-5 Years) and At-Risk Patients (6 to 49 Years) (1 of 2 - PCV) 2007 Pap Smear (Ages 21-65) 2009 HPV Vaccines (1 - 3-dose SCDM series) 2015 COVID-19 Vaccine ( - season) 2024 Influenza Vaccine 06/22/2025 11/05/2022, , 11/05/2016 Care Teams Furniture Inspector Relationship Specialty Start Date End Date Pcp, No [address] [place] [address] PCP - General 03/16/23
== END 2025-07-18 16:13 | disposition home or self-care (01) ==
LOC: HO.HWS 15:46
PROVIDERS: Visit Provider Obstetrics & Gynecology
DX: N76.0 Acute vaginitis (principal)
CPT/HCPCS: 99213

== ENCOUNTER 2025-08-20 14:56 | Outpatient (AMB) | payer MEDICAID, SELFPAY ==
--- NOTE | 2025-08-20 14:59 | MHC.OFFVIS ---
Intake Visit Reasons: vaginal itching Gas Station Operator: Gas Station Operator Present (No) Accompanied by: Self / Same As Patient Allergies amoxicillin Allergy (Severe, Verified 08/20/25 15:08) hives gabapentin Allergy (Severe, Verified 08/20/25 15:08) Hives vancomycin Allergy (Severe, Verified 08/20/25 15:08) hives penicillin V Allergy (Unknown, Verified 08/20/25 15:08) hives Penicillins Allergy (Unknown, Verified 08/20/25 15:08) HIVES HPI Comments Details: Presenting complaining of vulvovaginal itching associated with cottage cheese discharge, no vaginal odor [facility] Medical History Depression with anxiety Surgical History History of loop electrical excision procedure (LEEP) History of tubal ligation Family History Mother Diabetes Paternal Grandmother Alzheimer's dementia Social History Household Members: Children Housing: Apartment Alcohol intake: current Alcohol intake frequency: holidays/special occasions only Patient Tobacco Use Status: Former Tobacco user Cigarettes Per Day: 3 Years Smoked: 10 Current occupational status: unemployed Sexual orientation: Straight/Heterosexual Gender identity: Female Female Reproductive History Menstrual Age of Menarche: 8 Review of Systems Const All systems reviewed & are unremarkable except as noted in HPI and below Physical Exam General: Yes no CVA tenderness External Female Exam: normal external appearance and normal appearance of the urethra Speculum Exam - Vagina: normal appearance of the vagina, normal palpation, no lesions and no masses Speculum Exam - Cervix: normal appearance of the cervix, normal palpation, no lesions, no masses and nontender Bimanual exam- vagina & uterus: normal bimanual exam, normal palpation, uterine size normal, normal palpation, uterine shape normal, No Cervical tenderness present and non-tender Bimanual Exam- Adnexa, other: normal adnexae Back/Spine/Pelvis Back: no CVA tenderness Assessment & Plan Assessment & Plan (1) Vulvovaginitis: Code(s): N76.0 - Acute vaginitis Category: Medical Plan: GC/CT, Bacterial Vaginosis panel taken, Terazol 0.8% q.h.s. for 3 days was sent to the patient's pharmacy. The patient was instructed to call if symptoms don't improve in 48 hours. Medications: New terconazole 0.8% 1 appful vaginal BEDTIME 20 grams 0RF 3 days Coding Level of Care Code Est Pt Level 3 (53937) Diagnoses Vulvovaginitis N76.0
--- OUTSIDE RECORDS SUMMARY | 2025-08-20 16:59 | XMS_ITS | Clinical Summary ---
Author Organization [facility] Address [address] [place] [address] Phone Care Team Providers Care Jewelry Facer Name Role Phone Unavailable Primary Care Provider [...] 10/21/2022 Social Influencers of Health Screening 10/21/2022 Hepatitis B Vaccines (2 of 3 - 19+ 3-dose series) 11/20/2024 10/23/2024 Depression Screening 11/22/2024 COVID-19 Vaccine (4 - 2024-2 6 season) 2025 06/05/2022, 07/08/2021, 06/10/2021 Influenza Vaccine (#1) 2025 , 10/28/2018, 11/05/2016 [...] to complete this topic Insurance MEDICAID - [id number]
--- OUTSIDE RECORDS SUMMARY | 2025-08-20 16:59 | XMS_ITS ---
Author Name [facility] Organization Unknown Encounters Encounter Type Encounter Reason Primary Diagnosis Location Date Ambulatory [facility] 03/23/2023 Care Team Organization Name Specialty Phone Email Start Date End Da te [facility] Int[facility] NO PCP Primary Care 03/23/2023 03/23/2023 [facility] PCP,No Primary Care 03/23/2023
--- OUTSIDE RECORDS SUMMARY | 2025-08-20 16:59 | XMS_ITS | Clinical Summary ---
Author Organization [facility] Address [address] [place] [address] Care Team Providers Care Hoist Operator Name Role Phone Pcp, No Primary Care [...] Vaccines (1 - 3-dose SCDM series) 2015 Influenza Vaccine 06/22/2025 11/05/2022, , 11/05/2016 COVID-19 Vaccine ( season) 2025 Care Teams Hoist Operator Relationship Specialty Start Date End Date Pcp, No [address] [place] [address] PCP - General 03/16/23
--- OUTSIDE RECORDS SUMMARY | 2025-08-20 16:59 | XMS_ITS | Clinical Summary ---
Author Organization [facility] Address [address] [facility] [address] [place] [address] Care Team Providers Care Pediatric Oncologist Name Role Phone Unavailable Primary Care Provider Unavailabl e Encounters Date Type Department Care Team Description 06/12/2025 Population Health Risk Score [facility] (C3) Department [address] [facility] [address] [place] [address] Provider, Population Health Generic from [...] 2009 Cervical Cancer Screening 2018 HPV/Cotest 2018 Hepatitis B Vaccines (2 of 3 - 19+ 3-dose series) 11/20/2024 10/23/2024 COVID-19 Vaccine ( - 2023- season) 2025 Influenza Vaccine (#1) 2025 , 10/28/2018, 11/05/2016 DTaP/Tdap/Td Vaccines (3 - Td or Tdap) 10/28/2028 10/28/2018, 11/05/2016 Zoster Vaccines (1 of 2) 2038 RSV Patients and Patients Aged 60 years or older (1 - 1-dose 75+ series) 2063 Pneumococcal Vaccine: Pediatrics (0 to 5 Years) and At-Risk Patients (6 to 49) Years Aged Out 07/02/2023 No longer eligible based on patient's age to complete this topic HIV Screening Completed 08/02/2025, 07/23, 06/29/2023, Additional history exists HIB Vaccines Aged Out No longer eligi [...]
--- OUTSIDE RECORDS SUMMARY | 2025-08-20 16:59 | XMS_ITS | Clinical Summary ---
Author Organization [facility] Address [address] [place] [phone] Phone Care Team Providers Care Air Quality Engineer Name Role Phone Pcp, Unknown Primary Care [...] (18-6 5 YEARS) 2006 PAP SMEAR 2009 INFLUENZA VACCINE (#1) 2025 , 10/28/2018, 11/05/2016 COVID-19 VACCINE (4 - 2024-2 6 season) 2025 06/05/2022, 07/08/2021, 06/10/2021 Adult Td,Tdap Booster 10/28/2028 10/28/2018 , 11/05/2016 [...] ACO C3 ACO C3 ACO [employer] [phone] [place] [address] C3 ACO Care Teams Air Quality Engineer Relationship Specialty Start Date End Date Pcp, Unknown PCP - General 04/05/24 Additional Source Comments The information contained in this document represents components of the legal health record. It is not the complete legal health record.[facility]
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
== END 2025-08-20 15:11 | disposition home or self-care (01) ==
LOC: HO.HWS 14:56
PROVIDERS: Visit Provider Obstetrics & Gynecology
DX: N76.0 Acute vaginitis (principal)
CPT/HCPCS: 99213

== ENCOUNTER 2025-08-20 14:56 | Outpatient (REF) | payer MEDICAID, SELFPAY ==
[2025-08-21 04:52] LABS: Bacterial Vaginosis PCR NEGATIVE (Negative); Candida Group PCR DETECTED (Not Detect); Candida glab krusei PCR NOT DETECTED (Not Detect); Trichomonas vaginalis PCR NOT DETECTED (Not Detect)
[2025-08-21 06:39] LABS: CT PCR NOT DETECTED (Not Detect.); NG PCR NOT DETECTED (Not Detect.)
== END 2025-08-20 14:57 | disposition home or self-care (01) ==
LOC: HO.LNP 14:56
PROVIDERS: Visit Provider Obstetrics & Gynecology
DX: N76.0 Acute vaginitis (principal); B96.89 Other specified bacterial agents as the cause of diseases classified elsewhere; Z20.2 Contact with and (suspected) exposure to infections with a predominantly sexual mode of transmission
CPT/HCPCS: 81515; 87491; 87591; 99212

== ENCOUNTER 2025-09-19 12:43 | Outpatient (AMB) | payer MEDICAID, SELFPAY ==
--- NOTE | 2025-09-19 12:49 | MHC.OFFVIS ---
Intake Visit Reasons: pelvic pain Human Resources Benefits Administrator: Human Resources Benefits Administrator Present (No) Accompanied by: Self / Same As Patient Allergies amoxicillin Allergy (Severe, Verified 09/19/25 12:53) hives gabapentin Allergy (Severe, Verified 09/19/25 12:53) Hives vancomycin Allergy (Severe, Verified 09/19/25 12:53) hives penicillin V Allergy (Unknown, Verified 09/19/25 12:53) hives Penicillins Allergy (Unknown, Verified 09/19/25 12:53) HIVES HPI Comments Details: The patient is presenting with bilateral lower pelvic pain started 1-2 weeks ago. It's intermittent in nature lasting few seconds and occurs 3x/day. it is associated with urinary frequency no dysuria no incontinence, no n/v, no feverishness no vaginal discharge or other GI symptoms PFSH Medical History Depression with anxiety Surgical History History of loop electrical excision procedure (LEEP) History of tubal ligation Family History Mother Diabetes Paternal Grandmother Alzheimer's dementia Social History Household Members: Children Housing: Apartment Alcohol intake: current Alcohol intake frequency: holidays/special occasions only Patient Tobacco Use Status: Former Tobacco user Cigarettes Per Day: 3 Years Smoked: 10 Current occupational status: unemployed Sexual orientation: Straight/Heterosexual Gender identity: Female Female Reproductive History Menstrual Age of Menarche: 8 Review of Systems Const All systems reviewed & are unremarkable except as noted in HPI and below Physical Exam General: Yes no CVA tenderness External Female Exam: normal external appearance and normal appearance of the urethra Speculum Exam - Vagina: normal appearance of the vagina, normal palpation, no lesions and no masses Speculum Exam - Cervix: normal appearance of the cervix, normal palpation, no lesions, no masses and nontender Bimanual exam- vagina & uterus: normal bimanual exam, normal palpation, uterine size normal, normal palpation, uterine shape normal, No Cervical tenderness present and non-tender Bimanual Exam- Adnexa, other: normal adnexae Back/Spine/Pelvis Back: no CVA tenderness Assessment & Plan Assessment & Plan (1) Pelvic pain: Code(s): R10.2 - Pelvic and perineal pain Category: Medical Plan: Urine test done in the office was negative. GC and chlamydia taken and pelvic ultrasound ordered. Discussed with the patient the differential diagnosis of pelvic pain including but not limited to adnexal, uterine masses, pelvic infections (PID), GI the (Irritable bowel syndrome, diverticulitis, others), musculoskeletal, myofascial pain abdominal wall , adhesions, endometriosis, psychological and others causes. Will check results and treat accordingly. All questions answered, the patient verbalized understanding. Instructed the patient to schedule an ultrasound and a follow-up appointment in 2 weeks. All questions answered, the patient verbalized understanding and agreed with the plan. (2) Microscopic hematuria: Code(s): R31.29 - Other microscopic hematuria Category: Medical Plan: Urine dip showed microscopic hematuria, urine culture sent. Will repeat urine dip in 2 weeks. Discussed with the patient the possible causes of microscopic hematuria including but not limited to: interstitial cystitis, polyps, stones, masses, urethral inflammatory processes and others. If Urine Culture is negative and repeat urine dip in 2 weeks shows persistent microscopic hematuria, will proceed with CT abdomen/pelvis and urology referral. Instructions given the patient to schedule a 2 week urine dip follow-up appointment. All questions answered and the patient verbalized understanding. Orders: Orders US pelvic and transvaginal Today R10.2 - Pelvic and perineal pain Coding Level of Care Code Est Pt Level 3 (86820) Diagnoses Pelvic pain R10.2 Microscopic hematuria R31.29
--- OUTSIDE RECORDS SUMMARY | 2025-09-19 16:02 | XMS_ITS | Clinical Summary ---
Author Organization [facility] Address [address] [id number] Care Team Providers Care Junior Software Engineer Name Role Phone Pcp, No Primary Care [...] Pap Smear (Ages 21-65) 2009 Influenza Vaccine 06/22/2025 11/05/2022, , 11/05/2016 COVID-19 Vaccine ( - season) 2025 HPV Vaccines (No Doses Required) Completed Care Teams Junior Software Engineer Relationship Specialty Start Date End Date Pcp, No [address] [place] [address] PCP - General 03/16/23
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
--- OUTSIDE RECORDS SUMMARY | 2025-09-19 16:03 | XMS_ITS | Clinical Summary ---
Author Organization [facility] Address [address] [place] [address] Phone Care Team Providers Care Host/Hostess Ground Name Role Phone Unavailable Primary Care Provider [...] Cervical Cancer Screening: P ap Smear 2009 HPV Vaccines (1 - 3-dose SCD M series) 2015 HIV Screening 10/21/2022 Social Influencers of Health Screening 10/21/2022 Hepatitis B Vaccines (2 of 3 - 19+ 3-dose series) 11/20/2024 10/23/2024 Depression Screening 11/22/2024 COVID-19 Vaccine (4 - 2024-2 6 season) 2025 06/05/2022, 07/08/2021, 06/10/2021 Influenza Vaccine (#1) 2025 , 10/28/2018, 11/05/2016 DTaP,Tdap,and Td Vaccines (3 - Td or Tdap) 10/28/2028 10/28/2018, 11/05/2016 Cholesterol Screening (Lipid Panel) 08/31/2029 08/31/2024, 08/31/2024 RSV Immunization Adult Patients (1 - 1-dose 75+ series) 2063 Hepatitis C Screening Completed 06/29/2023 Pneumococcal Vaccine: [...] to complete this topic Insurance [place] - [place]
--- OUTSIDE RECORDS SUMMARY | 2025-09-19 16:03 | XMS_ITS | Clinical Summary ---
Author Organization [facility] Address [address] [place] [phone] Phone Care Team Providers Care Insurance Claims Examiner Name Role Phone Pcp, Unknown Primary Care [...] ACO C3 ACO C3 ACO ADDISON MCDANIEL [phone] [place] [address] C3 ACO Care Teams Insurance Claims Examiner Relationship Specialty Start Date End Date Pcp, Unknown PCP - General 04/05/24 Additional Source Comments The information contained in this document represents components of the legal health record. It is not the complete legal health record.[facility]
--- OUTSIDE RECORDS SUMMARY | 2025-09-19 16:03 | XMS_ITS | Clinical Summary ---
Author Organization [employer] Address [address] [facility] [address] [place] [address] Care Team Providers Care Addiction Counselor Name Role Phone Unavailable Primary Care [...] 19+ 3-dose series) 11/20/2024 10/23/2024 COVID-19 Vaccine (1 - 2023-2 5 season) 2025 Influenza Vaccine (#1) 2025 , [...] complete this topic HIV Screening Completed 08/02/2025, 06/29/2023, 04/01/2023 HIB Vaccines Aged Out No longer eligi [...]
== END 2025-09-19 13:06 | disposition home or self-care (01) ==
LOC: HO.HWS 12:44
PROVIDERS: Visit Provider Obstetrics & Gynecology
DX: R10.20 Pelvic and perineal pain unspecified side (principal); R31.29 Other microscopic hematuria; R31.9 Hematuria, unspecified
CPT/HCPCS: 99213

== ENCOUNTER 2025-09-19 12:43 | Outpatient (REF) | payer MEDICAID, SELFPAY ==
[2025-09-19 23:48] LABS: CT PCR NOT DETECTED (Not Detect.); NG PCR NOT DETECTED (Not Detect.)
== END 2025-09-19 12:44 | disposition home or self-care (01) ==
LOC: HO.LNP 12:43
PROVIDERS: Visit Provider Obstetrics & Gynecology
DX: R10.23 Pelvic and perineal pain bilateral (principal); R31.29 Other microscopic hematuria; Z32.02 Encounter for pregnancy test, result negative; Z20.2 Contact with and (suspected) exposure to infections with a predominantly sexual mode of transmission
CPT/HCPCS: 81002; 87086; 87491; 87591; 99212